=== PATIENT | female | born 1950 | race Caucasian/White ===

== ENCOUNTER 2023-09-14 09:55 | Outpatient (AMB) | payer MEDICARE, BC, SELFPAY ==
--- NOTE | 2023-09-14 10:06 | MHC.OFFVIS ---
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 Harris. Hx of left total knee replacement from 09/18/[address] Harris. Patient states she is here for her annual check up, states she has no concerns. She reports mild intermittent discomfort in her left knee. She denies any fevers or chills. She continues to walk for exercise. Allergies No Known Allergies Allergy (Verified 09/14/23 10:10) Medication List - Last Reconciled 09/14/23 by Elton Harris MD citalopram 10 mg PO DAILY gabapentin 100 mg PO DAILY glucosamine sulfate 500 mg PO DAILY timolol 0.5% 1 drp ophthalmic (eye) DAILY [facility] Social History Current occupational status: retired Physical Exam Vital Signs: BMI result Body Mass Index 38.1 Const Other: Well-nourished well-developed very friendly female awake alert and oriented x3 in no acute distress Extrem Other: Bilateral lower extremity examination shows good capillary refill, no skin lesions noted, normal sensation light touch Left knee examination shows that the surgical incision is well healed, no erythema, full active extension and flexion 120 degrees, her patella tracks well Results Reviewed Results Reviewed: X-rays of the patient's left knee taken today show a total knee arthroplasty in good position with no signs of loosening, no acute bony abnormalities Assessment & Plan Assessment & Plan (1) Left knee pain: Code(s): M25.562 - Pain in left knee Plan: Ms. Clements continues to do well after undergoing left total knee replacement surgery. She will continue with her home exercise program. She does know to take antibiotics before any dental work. She will contact me prior to her annual follow-up appointment should any questions or concerns arise. Feel free to call me at any time should questions regarding her orthopedic management arise. I spent 22 minutes in reviewing the patient's records and imaging studies, seeing the patient and documenting in the medical record. Orders: Orders XR knee LT 3V Today M25.562 - Pain in left knee Coding Level of Care Code Est Pt Level 2 (27236) Diagnoses Left knee pain M25.562
[2023-09-14 10:10] VITALS: BMI 38.1
== END 2023-09-14 10:35 | disposition home or self-care (01) ==
PROVIDERS: PCP Internal Medicine; Visit Provider Orthopaedic Surgery
DX: M25.562 Pain in left knee (principal)
CPT/HCPCS: 99212

== ENCOUNTER 2023-09-14 10:14 | Outpatient (REF) | payer MEDICARE, BC, SELFPAY ==
--- NOTE | ~2023-09-14 | XR_ITS ---
EXAMINATION: XR KNEE, LEFT CLINICAL INFORMATION: Pain in left knee COMPARISON: None available. TECHNIQUE: 3 views of left knee. FINDINGS: Patient is status post total knee replacement on the left with patellar resurfacing. Prosthesis is well aligned and there is no fractures or joint effusion seen. XR/XR knee LT 3V IMPRESSION: Well positioned prosthesis of the left knee
== END 2023-09-14 10:15 | disposition home or self-care (01) ==
LOC: HO.HOSX 10:14
PROVIDERS: Visit Provider Orthopaedic Surgery
DX: M25.562 Pain in left knee (principal)
CPT/HCPCS: 73562; 99212

== ENCOUNTER 2024-04-05 07:08 | Outpatient (REF) | payer MEDICARE, BC, SELFPAY ==
--- NOTE | ~2024-04-05 | XR_ITS ---
EXAMINATION: XR KNEE, LEFT CLINICAL INFORMATION: Pain in left knee. COMPARISON: 09/14/2023. TECHNIQUE: Three views of the left knee. FINDINGS: Status post total knee arthroplasty. Hardware appears intact. Alignment maintained. Increased lucency along the articulation between the proximal aspect of the prosthesis and the distal femur, possibly at least in part attributable to technical differences. Bones are diffusely demineralized. Moderate joint effusion. XR/XR knee LT 3V IMPRESSION: Status post total knee arthroplasty. Hardware appears intact. Increased lucency along the articulation between the proximal aspect of the prosthesis in the distal femur, possibly at least in part attributable to technical differences.
== END 2024-04-05 07:09 | disposition home or self-care (01) ==
LOC: HO.HOSX 07:08
PROVIDERS: Visit Provider Orthopaedic Surgery
DX: M25.562 Pain in left knee (principal)
CPT/HCPCS: 73562; 99212

== ENCOUNTER 2024-04-05 10:46 | Outpatient (AMB) | payer MEDICARE, BC, SELFPAY ==
[2024-04-05 10:54] VITALS: BMI 38.1
--- NOTE | 2024-04-05 10:54 | A.OFFVIS_ITS ---
Vital Signs 04/05/24 10:54 Height 5 ft 3 in Weight 215 lb BMI 38.1 Intake Visit Reasons: ov-LT knee replacement 09/18/2019 Dr. Harris Intake Note: Kierra is a 73 year old female who presents for a follow up after her Left knee replacement on 09/18/2019. Patient reports s minimal discomfort in her left knee. She denies any fevers or chills. She states that over the last few years she has put on a fair amount of weight. She is due to start the [employer] weight loss program. Allergies No Known Allergies Allergy (Verified 04/05/24 11:15) Medication List - Last Reconciled 04/05/24 by Elton Harris MD citalopram 10 mg PO DAILY gabapentin 100 mg PO DAILY glucosamine sulfate 500 mg PO DAILY timolol 0.5% 1 drp ophthalmic (eye) DAILY [facility] Surgical History (Updated 04/05/24 @ 11:18 by Susi Alvarado CMA) Hx of left knee surgery (09/18/19) Social History (Updated 09/14/23 @ 10:15 by Cindy Agarwal [facility]) Current occupational status: retired Physical Exam Vital Signs: BMI result Body Mass Index 38.1 Const Other: Well-nourished well-developed very friendly female awake alert and oriented x3 in no acute distress Extrem Other: Bilateral lower extremity examination shows good capillary refill, no skin lesions noted, normal sensation light touch Left knee examination shows that the surgical incision is well healed, no erythema, full active extension and flexion to 120 degrees, her patella tracks well, no instability Results Reviewed Results Reviewed: X-rays of the patient's left knee taken today show a total knee arthroplasty in good position with no signs of loosening, no acute bony abnormalities Assessment & Plan Assessment & Plan (1) Left knee pain: Code(s): M25.562 - Pain in left knee Category: Medical Plan Ms. Clements continues to do well after undergoing left total knee replacement surgery. She does know to take antibiotics before any dental work. She will continue with her home exercise program. I did refer her to the beef cattle farm manager here at [facility] for further information regarding weight loss programs. She will contact me prior to her annual follow-up appointment should any questions or concerns arise. Feel free to call me at any time should questions regarding her orthopedic management arise. I spent 21 minutes in reviewing the patient's records and imaging studies, seeing the patient and documenting in the medical record. Orders: Orders XR knee LT 3V 04/05/24 M25.562 - Pain in left knee Referrals Nutrition/Dietitian Referral E66.9 - Obesity, unspecified, M25.562 - Pain in left knee Coding Level of Care Code Est Pt Level 3 (17131) Diagnoses Left knee pain M25.562
== END 2024-04-05 11:42 | disposition home or self-care (01) ==
PROVIDERS: PCP Internal Medicine; Visit Provider Orthopaedic Surgery
DX: M25.562 Pain in left knee (principal); Z96.652 Presence of left artificial knee joint
CPT/HCPCS: 99213

== ENCOUNTER 2024-07-20 11:25 | Outpatient (AMB) | payer MEDICARE, BC, SELFPAY ==
--- NOTE | 2024-07-20 11:44 | MHC.OFFVIS ---
Intake Visit Reasons: ov-LT knee replacement 09/18/2019 Dr. Harris Intake Note: Kierra is a 73 year old female who presents for a follow up after her Left knee replacement on 09/18/2019. The patient states that she has mild intermittent discomfort in her left knee. She denies any fevers or chills. She states that she has been eating healthier foods but has been having trouble losing weight. She is due to see her primary care doctor over the next few months to discuss the possibility of going on a medicine like Ozempic. Allergies No Known Allergies Allergy (Verified 07/20/24 11:44) Medication List - Last Reconciled 07/20/24 by Elton Harris MD amoxicillin 500 mg PO BID citalopram 10 mg PO DAILY gabapentin 100 mg PO DAILY glucosamine sulfate 500 mg PO DAILY timolol 0.5% 1 drp ophthalmic (eye) DAILY [facility] Surgical History (Updated 04/05/24 @ 11:18 by Susi Alvarado [facility]) Hx of left knee surgery (09/18/19) Social History (Updated 09/14/23 @ 10:15 by Cindy Agarwal [facility]) Current occupational status: retired Physical Exam Const Other: Well-nourished well-developed very friendly female awake alert and oriented x3 in no acute distress Extrem Other: Bilateral lower extremity examination shows good capillary refill, no skin lesions noted, normal sensation light touch Left knee examination shows that the surgical incision is well healed, no erythema, full active extension and flexion to 120 degrees, her patella tracks well Assessment & Plan Assessment & Plan (1) Left knee pain: Code(s): M25.562 - Pain in left knee Category: Medical Plan Ms. Clements continues to do fairly well after undergoing left total knee replacement surgery on 09/18/2019. She will continue with her home exercise program. She does know to take antibiotics before any dental work. She will contact me prior to her annual follow-up appointment should any questions or concerns arise. Feel free to call me at any time should questions regarding her orthopedic management arise. I spent 22 minutes in reviewing the patient's records and imaging studies, seeing the patient and documenting in the medical record. Coding Level of Care Code Est Pt Level 3 (16105) Complex EM visit Add On G2211 Diagnoses Left knee pain M25.562
== END 2024-07-20 12:15 | disposition home or self-care (01) ==
PROVIDERS: PCP Internal Medicine; Visit Provider Orthopaedic Surgery
DX: M25.562 Pain in left knee (principal); Z47.1 Aftercare following joint replacement surgery
CPT/HCPCS: 99213; G2211

== ENCOUNTER → 2024-07-20 11:25 | Outpatient (BNVA) | payer MEDICARE, BC, SELFPAY | PROVIDERS: PCP Internal Medicine; Visit Provider Orthopaedic Surgery | DX: M25.562 Pain in left knee (principal); Z96.652 Presence of left artificial knee joint | CPT/HCPCS: 99212 ==

== ENCOUNTER 2024-11-16 11:19 | Outpatient (AMB) | payer MEDICARE, BC, SELFPAY ==
[2024-11-16 11:24] VITALS: BMI 38.1
--- NOTE | 2024-11-16 11:24 | MHC.OFFVIS ---
Vital Signs 11/16/24 11:24 Height 5 ft 3 in Weight 215 lb BMI 38.1 Intake Visit Reasons: ov-LT knee replacement 09/18/2019 Dr. Harris Intake Note: Kierra is a 73 year old female who presents for a follow up after undergoing a left knee replacement on 09/18/2019. She reports mild discomfort in her left knee. She denies any fevers or chills. She continues with her home exercise program. Allergies No Known Allergies Allergy (Verified 11/16/24 11:24) Medication List - Last Reconciled 11/16/24 by Elton Harris MD amoxicillin 500 mg PO BID citalopram 10 mg PO DAILY fluticasone propionate 50 mcg/actuation 1 spray intranasal DAILY gabapentin 100 mg PO DAILY glucosamine sulfate 500 mg PO DAILY latanoprost 0.005% drps ophthalmic (eye) timolol 0.5% 1 drp ophthalmic (eye) DAILY [facility] Surgical History (Updated 04/05/24 @ 11:18 by Susi Alvarado CMA) Hx of left knee surgery (09/18/19) Social History (Updated 09/14/23 @ 10:15 by Cindy Agarwal [facility]) Current occupational status: retired Physical Exam Vital Signs: BMI result Body Mass Index 38.1 Const Other: Well-nourished well-developed very friendly female awake alert and oriented x3 in no acute distress Extrem Other: Bilateral lower extremity examination shows good capillary refill, no skin lesions noted, normal sensation light touch Left knee examination shows that the surgical incision is well healed, no erythema, full active extension and flexion to 115 degrees, her patella tracks well Assessment & Plan Assessment & Plan (1) Left knee pain: Code(s): M25.562 - Pain in left knee Category: Medical Plan Ms. Clements continues to do well after undergoing left total knee replacement surgery on 09/18/2019. She will continue with her home exercise program. She does know to take antibiotics before any dental work. She will contact me prior to her annual follow-up appointment should any questions or concerns arise. Feel free to call me at any time should questions regarding her orthopedic management arise. I spent 20 minutes in reviewing the patient's records and imaging studies, seeing the patient and documenting in the medical record. Medications: New celecoxib (Celebrex) 200 mg PO DAILY PRN 30 caps 3RF pain Coding Level of Care Code Est Pt Level 3 (15379) Complex EM visit Add On G2211 Diagnoses Left knee pain M25.562
--- OUTSIDE RECORDS SUMMARY | 2024-11-16 11:59 | XMS_ITS | Continuity of Care Document ---
Author Organization [facility], PAIN OFFICE Address [address] [place] [address] Care Team Providers Care Geological Technician Name Role Phone GALE GALVIN Primary Care Provider Assessment Encounter Date Assessment Date Assessment LastModified by Organization Details LastModified Time 10/12/2024 10/12/2024 Kierra Clements is a 73 year old woman with complaints of low back pain . On exam ,she has pain on flexion. Straight leg raising test is positive on the right. ??MRI Lumbar spine shows degenerative changes most notable at L4-5 level. A grade 1 spondylolisthesis in association with facet arthropathy and ligamentum flavum hypertrophy results in moderate central canal stenosis. She is here for a follow up after a trial of Lumbar epidural steroid injection under fluoroscopic guidance . She reports good pain relief for one month and will call for a repeat injection as needed. She will continue on gabapentin [email or web address] Not available 10/12/2024 16:13:31 Plan of Treatment Reminders Order Date Submit Date Provider Last Modified By Organization Details Last Modified Time Details Appointments None record ed. Lab None record ed. Referral None record ed. Procedures None record ed. Surgeries None record ed. Imaging None record ed. Medication Orders None record ed. Patient TargetsNo targets recorded. Patient Instructions Encounter Date Encounter Id Patient Instructions Last Modified By Organization Details Last Modified Time 10/12/2024 [id number] She was advised against bed rest lasting longer than four days and to continue activities as tolerated. [email or web address] Not available 10/12/2024 16:05:53 Reason for Referral None Reported. Problems Name Problem SNOMED Code Status Onset Date Resolution Date Notes Provider Name and Address Organization Details Recorded Time Spinal stenosis of lumbar region 32687130 Active Brandy de jesus MD [address] , [address], [facility] [place], [address], [place] [facility] 6 15:12:08 Lumbosacral spondylosis without myelopathy 09832125 Active Brandy de jesus MD [address] , [address], [place], [address], [place] [facility] 6 15:12:08 Displacement of lumbar intervertebral disc without myelopathy 42931578 Active Brandy de jesus MD [address] , [address], [place], [address], [place] [facility] 6 15:12:08 Lumbosacral radiculitis 83413345 Active Brandy de jesus MD [address] [facility] , [address], [place], [address], [place] [facility] 6 15:12:08 Spondylolisthe sis 540634416 Active Brandy de jesus MD [address] [facility] [address] [facility] , [address], [place], [address], [place] [facility] 6 15:12:08 Osteoarthritis of knee 279439005 Active Brnady de jesus MD [address] [facility] , [address], [place], [address], [place] [facility] 6 15:12:08 Problem Notes None recorded. Procedures Surgical History Date Name Laterality Status Provider Name and Address Organization Details Recorded Time 09/12/20 24 Lumbar Epidural steroid injection under fluoroscopic guidance completed Brandy Torres MD [address] , [address], [place], [address], [place] [facility] 09/12/2024 12:02:32 10/03/20 18 Intra-articular Knee Steroid Injection completed Brandy Torres MD [address] , [address], [place], [address], [place] [facility] 10/03/2018 13:56:48 02/05/20 17 Intra-articular Knee Steroid Injection completed Brandy Torres MD [address] , [address], [place], [address], [place] [facility] 02/04/2017 14:33:54 06/11/20 16 Intra-articular Knee Steroid Injection completed Brandy Torres MD [address] , [address], [place], [address], [place] [facility] 06/12/2016 09:27:30 05/06/20 16 Lumbar Epidural steroid injection under fluoroscopic guidance completed Brandy Torres MD [address] , [address], [place], [address], [place] [facility] 05/06/2016 10:37:52 01/01/20 16 Lumbar Epidural steroid injection under fluoroscopic guidance completed Brandy Torres MD [address] , [address], [place], [address], [place] [facility] 01/01/2016 09:34:35 10/22/20 15 Lumbar Epidural steroid injection under fluoroscopic guidance completed Brandy Torres MD [address] [facility] , [address], [place], [address], [place] [facility] 10/23/2015 11:40:58 07/31/20 15 Lumbar Epidural steroid injection under fluoroscopic guidance completed Brandy Torres MD [address] [facility] , [address], [place], [address], [place] [facility] 08/01/2015 13:40:16 05/06/20 15 Lumbar Epidural steroid injection under fluoroscopic guidance completed Brandy Torres MD [address] [facility] , [address], [place], [address], [place] - [facility] 05/06/2015 10:40:39 02/12/20 15 Fluoroscopic Guided Lumbar Facet Steroid Injections of levels completed Brandy Torres MD [address] , [address], [place], [address], [place] [facility] 02/19/2015 11:23:10 12/31/19 15 Lumbar Epidural steroid injection under fluoroscopic guidance completed Brandy Torres MD [address] , [address], [place], [address], [place] [facility] 12/31/2014 10:03:38 Arthroscopic Surgery completed Radha Davis [place] - [facility] 12/28/2014 11:17:16 Other completed Radha Davis [place] [facility] 12/28/2014 11:17:16 Other completed Radha Davis [place] [facility] 12/28/2014 11:17:16 Other completed Radha Davis [place] [facility] 12/31/2014 08:46:03 Cataract Surgery completed Radha Davis [place] [facility] 12/28/2014 11:17:16 Imaging Results None recorded. Procedure Notes None recorded. Medical Equipment None Reported. Allergies No known drug allergies Medications Name Sig Start Date Stop Date Status Note LastModified by Organization Details LastModified Time celecoxib 200 mg capsule Take 1 capsule every day by oral route for 30 days. 11/27 completed Not Available Not Available Not Available amoxicill in 500 mg capsule 07/13 completed Not Available Not Available Not Available latanopro st 0.005 % eye drops active Not Available Not Available Not Available doxycycli ne hyclate 100 mg capsule 09/22 completed Not Available Not Available Not Available citalopra m 40 mg tablet active Not Available Not Available Not Available hydrocodo ne 5 mg-acetam inophen 325 mg tablet active Not Available Not Available Not Available ibuprofen 200 mg capsule Take 2 capsules every 6 hours by oral route. active Not Available Not Available No t Available permethri n 5 % topical cream active Not Available Not Available Not Available sulfameth oxazole 800 mg-trimet hoprim 160 mg tablet 09/22 completed Not Available Not Available Not Available citalopra m 20 mg tablet 07/13 completed SSRI Not Available Not Available Not Available aspirin 325 mg tablet,de layed release active Not Available Not Available Not Available lorazepam 2 mg tablet active Not Available Not Available Not Available dexametha sone 4 mg tablet active Not Available Not Available Not Available gabapenti n 300 mg capsule TAKE TWO CAPSULES BY MOUTH THREE TIMES A DAY active Not Available Not Available No t Available amoxicill in 250 mg capsule Take 1 capsule every 8 hours by oral route. 10/12 completed Not Available Not Available Not Available azelastin e 137 mcg (0.1 %) nasal spray 11/27 completed Not Available Not Available Not Available methylpre dnisolone 4 mg tablets in a dose pack 09/22 completed Not Available Not Available Not Available timolol maleate 0.5 % eye drops active Not Available Not Available Not Available fluticaso ne propionat e 50 mcg/actua tion nasal spray,marie pension active Not Available Not Available Not Available amoxicill in 500 mg-potass ium clavulana te 125 mg tablet TAKE 1 TABLET BY MOUTH EVERY 8 HOURS FOR 7 DAYS 07/13 completed Not Available Not Available Not Available Tylenol Extra Strength 500 mg tablet Take 2 tablets every 6 hours by oral route. active otc antihist amine once daily Not Available Not Available Not Available oxycodone 5 mg tablet 11/27 completed Not Available Not Available Not Available Jantoven 1 mg tablet 11/27 completed Not Available Not Available Not Available GaviLyte- G 236 gram-22.7 4 gram-6.74 gram-5.86 gram oral solution 07/13 completed Not Available Not Available Not Available Fluzone High-Dose (PF) 180 mcg/0.5 mL intramusc ular syringe TO BE ADMINIST ERED BY PHARMACI ST FOR IMMUNIZA TION active Not Available Not Available No t Available Fluzone High-Dose (PF) 180 mcg/0.5 mL intramusc ular syringe TO BE ADMINIST ERED BY A PHARMACI ST active Not Available Not Available No t Available Shingrix (PF) 50 mcg/0.5 mL intramusc ular suspensio n, kit 11/27 completed Not Available Not Available Not Available Fluzone High-Dose (PF) 180 mcg/0.5 mL intramusc ular syringe ADM 0.5ML IM UTD 09/22 completed Not Available Not Available Not Available Vitals Date Recorded Heart rate Oxygen saturation Oxygen saturation in Arterial blood by Pulse oximetry Systolic blood pressure Diastolic blood pressure Provider Name and Address Organization Details Last Updated DateTime 4 67 /min 96 % 96 % 145 mm[Hg] 73 mm[Hg] Sole gonzales [place] [facility] 4 10:31:00 Social History Question Answer Notes LastModified by Organizat ion Details LastModified Time Tobacco Smoking Status Former Smoker Quit x 40 years Not Available [employer] 08/23/2020 03:16:10 What Is Your Level Of Alcohol Consumption? Moderate [id number] Information not available 08/23/2020 Are You Currently Employed? No [id number] Information not available 08/23/2020 Which Illicit Or Recreational Drugs Have You Used? No [id number] Information not available 08/23/2020 Education Post Graduate [email or web address] Information not available 12/28/2014 Live Alone Or With Others? With Others [email or web address] Information not available 12/28/2014 Marital Status Informatio n not available 12/28/2014 What Was The Date Of Your Most Recent Tobacco Screening? 10/03/2018 [id number] Information not available 08/23/2020 How Many Years Have You Smoked Tobacco? 5 [id number] Information not available 08/23/2020 Sex: Unknown Functional Status None recorded. Mental Status None recorded. Family History Relationship Description Onset Age of this Age Resolved Age Notes LastModified by Organization Details LastModified Time Mother Problem Arthri tis [email or web address] Not available 06/11/2016 15:07:38 Father Problem Arthri tis [email or web address] Not available 06/11/2016 15:07:38 Medical History Condition Response Anxiety Disorder Y Arthritis Y Gynecological HistoryNo gynecological history recorded. Obstetrics History GPAL:G 0 P 0 0 0 0 Past Encounters Encounter ID Performer Location Encounter Start Date Encounter Closed Date Diagnosis/Indication Diagnosis SNOMED-CT Code Diagnosis ICD10 Code Diagnosis Note [id number] Brandy Torres MD PAIN OFFICE [address] [place] [address] 09/12/2024 11:15:23 09/12/2024 16:33:50 Spinal stenosis of lumbar region 28548513 M48.062 Lumbosacra l spondylosis without myelopathy 07869024 M47.817 Displaceme nt of lumbar intervertebral disc without myelopathy 45867223 M51.26 Spondylolisthesis 884263 003 M43.17 Lumbosacra l radiculitis 41288932 M54.17 [id number] Brandy Torres MD PAIN OFFICE [address] [facility] [place] [address] 10/12/2024 10:26:07 10/12/2024 16:18:51 Spinal stenosis of lumbar region 07515591 M48.062 Lumbosacra l spondylosis without myelopathy 66513238 M47.817 Displaceme nt of lumbar intervertebral disc without myelopathy 53485033 M51.26 Spondylolisthesis 881475 003 M43.17 Lumbosacra l radiculitis 81556541 M54.17 Health Concerns Section Related Observation LastModified by Organization Detai ls LastModified Time None Recorded Concern Status LastModified by Organization Details LastModified Time None Recorded Payers Encounter Date Sequence Insurance Name Policy Number Policy Germain Covered Member ID Germain Member ID Guarantor Name 10/12/2024 1 [place] [employer] [place] Kierra Clements [id number] Kierra Clements 10/12/2024 2 [place] Kierra Clements [id number] Kierra Clements Notes Date Note Type Note Provider Name and Address Organization Details Recorded Time 10/12/2024 text/html She is here for a follow up after a lumbar epidural steroid injection under fluoroscopic guidance. She reports 90% pain relief for 4 weeks with a recent return of pain. pain is back to baseline. She was walking better. She is complaining of occasionally achiness in her low back . She has no history of bladder or bowel incontinence. Brandy Torres MD [address] [place] [address] , [address], [place], [address], [place] [facility] 10/13/2024 09:12:46 OBGyn Episode No OBEpisode recorded.
--- OUTSIDE RECORDS SUMMARY | 2024-11-16 11:59 | XMS_ITS | Data Portability ---
Author Organization [place] [facility] PA[facility] OFF[facility] Address [address] [address] Care Team Providers Care Traffic Controller Cable Name Role Phone GALE GALVIN Primary Care Provider Assessment Encounter Date Assessment Date Assessment LastModified by Organization Details LastModified Time 11/27/2021 11/27/2021 Kierra Clements is a 71 year old woman with complaints of low back pain . On exam ,she has pain on flexion. Straight leg raising test is positive on the right. ??MRI Lumbar spine shows degenerative changes most notable at L4-5 level. A grade 1 spondylolisthesis in association with facet arthropathy and ligamentum flavum hypertrophy results in moderate central canal stenosis. She is on gabapentin with good pain benefit and no side effects. I have advised her to continue with same dosing. She will follow up as needed. [email or web address] Not available 12/03/2021 11:08:05 12/16/2022 12/16/2022 Kierra Clements is a 71 year old woman with complaints of low back pain . On exam ,she has pain on flexion. Straight leg raising test is positive on the right. ??MRI Lumbar spine shows degenerative changes most notable at L4-5 level. A grade 1 spondylolisthesis in association with facet arthropathy and ligamentum flavum hypertrophy results in moderate central canal stenosis. She is on gabapentin with good pain benefit and no side effects. I have advised her to increase the dose of gabapentin to 300mg in the am, 600mg in the afternoon and 300mg at night. She will call in one month and follow up in three months [email or web address] Not available 12/22/2022 11:00:51 07/13/2024 07/13/2024 Kierra Clements is a 73 year old woman with complaints of low back pain . On exam ,she has pain on flexion. Straight leg raising test is positive on the right. ??MRI Lumbar spine shows degenerative changes most notable at L4-5 level. A grade 1 spondylolisthesis in association with facet arthropathy and ligamentum flavum hypertrophy results in moderate central canal stenosis. She is on gabapentin with good pain benefit and no side effects. I have advised her to continue present doses She will follow up next year [email or web address] Not available 07/13/2024 10:51:14 09/12/2024 09/12/2024 Kierra Clements is a 73 year old [...] canal stenosis. She is here for a trial of Lumbar epidural steroid injection under fluoroscopic guidance . The risks and benefits of the procedure were discussed in detail. She wishes to proceed. She will follow up in four weeks [email or web address] Not available 09/12/2024 12:03:47 10/12/2024 10/12/2024 Kierra Clements is a 73 [...] Modified By Organization Details Last Modified Time 12/16/2022 [id number] She was advised against bed rest lasting longer than four days and to continue activities as tolerated. [email or web address] Not available 12/22/2022 10:59:36 07/13/2024 [id number] She was advised against bed rest lasting longer than four days and to continue activities as tolerated. [email or web address] Not available 07/13/2024 10:47:50 09/12/2024 [id number] She was advised against bed rest lasting longer than four days and to continue activities as tolerated. [email or web address] Not available 09/12/2024 12:03:01 10/12/2024 [id number] She was advised against bed rest lasting longer than four days and to continue activities as tolerated. [email or web address] Not available 10/12/2024 16:05:53 Reason for Referral None Reported. Problems Name Problem SNOMED Code Status Onset Date Resolution Date Notes Provider Name and Address Organization Details Recorded Time Spinal stenosis of lumbar region [id number] Fazal de jesus MD [address] [facility] , [address], [place], [address], [place] [facility] 6 15:12:08 Lumbosacral spondylosis without myelopathy [id number] Fazal de jesus MD [address] , [address], [place], [address], [place] [facility] 6 15:12:08 Displacement of lumbar intervertebral disc without myelopathy 15785230 Fazal de jesus MD [address] , [address], [place], [address], [place] [facility] 6 15:12:08 Lumbosacral radiculitis 24116112 Fazal de jesus MD [address] , [address], [place], [address], [place] [facility] 6 15:12:08 Spondylolisthe sis [id number] Fazal de jesus MD [address] , [address], [place], [address], [place] [facility] 6 15:12:08 Osteoarthritis of knee 967418314 Fazal de jesus MD [address] , [address], [place], [address], [place] [facility] 6 15:12:08 Problem Notes None recorded. Procedures Surgical History Date Name Laterality Status Provider Name and Address Organization Details Recorded Time 09/12/20 24 Lumbar Epidural steroid injection under fluoroscopic guidance completed Brandy Torres MD [address] , [address], [place], [address], [place] [facility] 09/12/2024 12:02:32 10/03/20 18 Intra-articular Knee Steroid Injection completed Brandy Torres MD [address] , [address], [place], [address], [place] [facility] 10/03/2018 13:56:48 02/05/20 17 Intra-articular Knee Steroid Injection completed Brandy Torres MD [address] , [address], [place], [address], [place] [facility] 02/04/2017 14:33:54 06/11/20 16 Intra-articular Knee Steroid Injection completed Brandy Torres MD [address] , [address], [place], [address], [place] [facility] 06/12/2016 09:27:30 05/06/20 16 Lumbar Epidural steroid injection under fluoroscopic guidance completed Brandy Torres MD [address] , [address], [place], [address], [place] [facility] 05/06/2016 10:37:52 01/01/20 16 Lumbar Epidural steroid injection under fluoroscopic guidance completed Brandy Torres MD [address] , [address], [place], [address], [place] [facility] 01/01/2016 09:34:35 10/22/20 15 Lumbar Epidural steroid injection under fluoroscopic guidance completed Brandy Torres MD [address] , [address], [place], [address], [place] [facility] 10/23/2015 11:40:58 07/31/20 15 Lumbar Epidural steroid injection under fluoroscopic guidance completed Brandy Torres MD [address] , [address], [place], [address], [place] [facility] 08/01/2015 13:40:16 05/06/20 15 Lumbar Epidural steroid injection under fluoroscopic guidance completed Brandy Torres MD [address] , [address], [place], [address], [place] [facility] 05/06/2015 10:40:39 02/12/20 15 Fluoroscopic Guided Lumbar Facet Steroid Injections of levels completed Brandy Torres MD [address] , [address], [place], [address], [place] [facility] 02/19/2015 11:23:10 12/31/19 15 Lumbar Epidural steroid injection under fluoroscopic guidance completed Brandy Torres MD [address] , [address], [place], [address], [place] [facility] 12/31/2014 10:03:38 Arthroscopic Surgery completed Radha Davis [place] [facility] 12/28/2014 11:17:16 Other completed Radha Davis [place] [facility] 12/28/2014 11:17:16 Other completed Radha Daivs [place] [facility] 12/28/2014 11:17:16 [...] ular syringe TO BE ADMINIST ERED BY [facility] active Not Available Not Available [...] and Address Organization Details Last Updated DateTime 2 67 /min 95 % 95 % 142 mm[Hg] 78 mm[Hg] Alena Yoon [place] [facility] 2 15:36:21 Date Recorded Heart rate Oxygen saturation Oxygen saturation in Arterial blood by Pulse oximetry Systolic blood pressure Diastolic blood pressure Provider Name and Address Organization Details Last Updated DateTime 3 72 /min 95 % 95 % 159 mm[Hg] 72 mm[Hg] Brittney de jesus [place] [facility] 3 16:10:05 Date Recorded Heart rate Oxygen saturation Oxygen saturation in Arterial blood by Pulse oximetry Systolic blood pressure Diastolic blood pressure Provider Name and Address Organization Details Last Updated DateTime 4 63 /min 95 % 95 % 119 mm[Hg] 66 mm[Hg] Karina Robertson [place] [facility] 4 10:32:15 Date Recorded Heart rate Oxygen saturation Oxygen saturation in Arterial blood by Pulse oximetry Systolic blood pressure Diastolic blood pressure Provider Name and Address Organization Details Last Updated DateTime 4 65 /min 97 % 97 % 139 mm[Hg] 82 mm[Hg] Lisa Kamila [place] [facility] 4 11:41:12 Date Recorded Heart rate Oxygen saturation Oxygen [...] Is Your Level Of Alcohol Consumption? Moderate [id number] Information not available 08/23/2020 Are You Currently Employed? No [id number] Information not available 08/23/2020 Which Illicit Or Recreational Drugs Have You Used? No [id number] Information not available 08/23/2020 Education Post Graduate [employer] Information not available 12/28/2014 Live Alone Or With Others? With Others Information not available 12/28/2014 Marital Status Informatio n not available 12/28/2014 What Was The Date Of Your Most Recent Tobacco Screening? 10/03/2018 [id number] Information not available 08/23/2020 How Many Years Have You Smoked Tobacco? 5 [id number] Information not available 08/23/2020 Sex: Unknown Functional [...] SNOMED-CT Code Diagnosis ICD10 Code Diagnosis Note 22083 PAIN OFFICE [address] [facility] [place] [place] [address] 12/28/2014 10:32:36 12/28/2014 13:45:12 Lumbosacral radiculitis 56729680 Spinal jenna nosis of lumbar region 39538505 Displaceme nt of lumbar intervertebral disc without myelopathy 77667031 Lumbosacra l spondylosis without myelopathy 84758818 Spondylolisthesis 291699198 72769 PAIN OFFICE [address] [facility] [address] [place] [address] 12/31/2014 09:01:00 12/31/2014 10:05:38 Spinal stenosis of lumbar region 90333303 Lumbosacra l spondylosis without myelopathy 95236620 Displaceme nt of lumbar intervertebral disc without myelopathy 09817514 Spondylolisthesis 460516348 Lumbosacra l radiculitis 77572938 34196 [facility] [address] [facility] [address] [facility] [place] [address] 01/29/2015 09:41:19 01/29/2015 14:44:07 Spinal stenosis of lumbar region 61855715 Lumbosacra l spondylosis without myelopathy 31686339 Displaceme nt of lumbar intervertebral disc without myelopathy 75935048 Spondylolisthesis 752097481 Lumbosacra l radiculitis 94185258 18862 [facility] [address] [facility] [address] [facility] [place] [address] 02/11/2015 12:57:21 02/19/2015 11:25:32 Lumbosacral spondylosis without myelopathy 66421955 Spinal jenna nosis of lumbar region 86504556 Displaceme nt of lumbar intervertebral disc without myelopathy 96569068 Spondylolisthesis 451382635 Lumbosacra l radiculitis 63348379 46619 [facility] [address] [facility] [address] [facility] [place] [address] 03/12/2015 09:15:37 03/17/2015 10:26:53 Spinal stenosis of lumbar region 31394902 Lumbosacra l spondylosis without myelopathy 35737634 Displaceme nt of lumbar intervertebral disc without myelopathy 37081581 Spondylolisthesis 293190124 Lumbosacra l radiculitis 08478559 60601 [facility] PA[facility] OFF[facility] [email or web address] [facility] [place] [address] 05/06/2015 09:45:43 05/07/2015 09:23:34 Spinal stenosis of lumbar region 99931604 Lumbosacra l spondylosis without myelopathy 15948925 Displaceme nt of lumbar intervertebral disc without myelopathy 31320501 Spondylolisthesis 527180412 Lumbosacra l radiculitis 03228177 20185 [facility] PA[facility] [address] [facility] [address] [facility] [place] [address] 07/31/2015 13:43:52 08/01/2015 13:42:18 Spinal stenosis of lumbar region 58304355 Lumbosacra l spondylosis without myelopathy 76026926 Displaceme nt of lumbar intervertebral disc without myelopathy 09563128 Spondylolisthesis 584182450 Lumbosacra l radiculitis 91119763 44657 Brandy Torres MD PAIN OFFICE [address] [place] [address] 10/22/2015 14:45:47 10/23/2015 11:42:48 Spinal stenosis of lumbar region 71805650 M48.06 Lumbosacra l spondylosis without myelopathy 61186157 M47.817 Displaceme nt of lumbar intervertebral disc without myelopathy 63673253 M51.26 Spondylolisthesis 655080 003 M43.10 Lumbosacra l radiculitis 97725546 M54.17 10370 Brandy Torres MD PAIN OFFICE [address] [place] [address] 01/01/2016 08:48:43 01/01/2016 09:35:14 Spinal stenosis of lumbar region 87670602 M48.06 Lumbosacra l spondylosis without myelopathy 30601366 M47.817 Displaceme nt of lumbar intervertebral disc without myelopathy 70359769 M51.26 Spondylolisthesis 951619 003 M43.10 Lumbosacra l radiculitis 37931393 M54.17 11906 Brandy Torres MD PAIN OFFICE [address] [place] [address] 02/28/2016 11:00:14 03/02/2016 08:55:00 Spinal stenosis of lumbar region 42156685 M48.06 Lumbosacra l spondylosis without myelopathy 41082822 M47.817 Displaceme nt of lumbar intervertebral disc without myelopathy 77585222 M51.26 Spondylolisthesis 960675 003 M43.17 Lumbosacra l radiculitis 16517878 M54.17 37772 Brandy Torres MD PAIN OFFICE [address] [place] [address] 05/06/2016 09:53:45 05/06/2016 10:38:29 Spinal stenosis of lumbar region 32359921 M48.06 Lumbosacra l spondylosis without myelopathy 92988339 M47.817 Displaceme nt of lumbar intervertebral disc without myelopathy 93133354 M51.26 Spondylolisthesis 814909 003 M43.17 M43.10 Lumbosacra l radiculitis 29361332 M54.17 79551 Brandy Torres MD PAIN OFFICE [address] [place] [address] 06/11/2016 13:12:24 06/11/2016 15:22:17 Spinal stenosis of lumbar region 46288649 M48.06 Lumbosacra l spondylosis without myelopathy 58965519 M47.817 Displaceme nt of lumbar intervertebral disc without myelopathy 72476101 M51.26 Spondylolisthesis 809099 003 M43.17 M43.10 Lumbosacra l radiculitis 11512583 M54.17 Osteoarthr itis of knee 140184046 M17.12 62015 Brandy Torres MD PAIN OFFICE [address] [place] [address] 02/04/2017 11:29:59 02/04/2017 15:11:25 Spinal stenosis of lumbar region 07368173 M48.06 Lumbosacra l spondylosis without myelopathy 29990583 M47.817 Displaceme nt of lumbar intervertebral disc without myelopathy 31497841 M51.26 Spondylolisthesis 795666 003 M43.17 M43.10 Lumbosacra l radiculitis 67455717 M54.17 Osteoarthr itis of knee 633039037 M17.12 48635 Brandy Torres MD PAIN OFFICE [address] [place] [address] 09/22/2018 14:47:52 09/23/2018 15:00:51 Spinal stenosis of lumbar region 87505537 M48.061 Lumbosacra l spondylosis without myelopathy 69095729 M47.817 Displaceme nt of lumbar intervertebral disc without myelopathy 38649043 M51.26 Spondylolisthesis 591730 003 M43.17 M43.10 Lumbosacra l radiculitis 13536899 M54.17 Osteoarthr itis of knee 576856937 M17.12 69006 Brandy Torres MD PAIN OFFICE [address] [place] [address] 10/03/2018 13:15:01 10/03/2018 13:58:50 Spinal stenosis of lumbar region 76760628 M48.061 Lumbosacra l spondylosis without myelopathy 56037456 M47.817 Displaceme nt of lumbar intervertebral disc without myelopathy 74004802 M51.26 Spondylolisthesis 910252 003 M43.17 M43.10 Lumbosacra l radiculitis 95221277 M54.17 Osteoarthr itis of knee 549541556 M17.12 11496 Brandy Torres MD [facility] PAIN OFFICE [address] [place] [address] 11/27/2021 15:24:36 12/03/2021 11:08:39 Spinal stenosis of lumbar region 36663466 M48.062 Lumbosacra l spondylosis without myelopathy 04489545 M47.817 Displaceme nt of lumbar intervertebral disc without myelopathy 60900786 M51.26 Spondylolisthesis 141111 003 M43.17 Lumbosacra l radiculitis 53671100 M54.17 96974 Brandy Torres MD [facility] PAIN OFFICE [address] [place] [address] 12/16/2022 16:05:48 12/22/2022 11:52:44 Spinal stenosis of lumbar region 80116513 M48.062 Lumbosacra l spondylosis without myelopathy 07659282 M47.817 Displaceme nt of lumbar intervertebral disc without myelopathy 79250409 M51.26 Spondylolisthesis 170125 003 M43.17 Lumbosacra l radiculitis 26656218 M54.17 93233 Brandy Torres MD [facility] PAIN OFFICE [address] [place] [address] 07/13/2024 10:25:32 07/13/2024 10:52:14 Spinal stenosis of lumbar region 23482693 M48.062 Lumbosacra l spondylosis without myelopathy 56751568 M47.817 Displaceme nt of lumbar intervertebral disc without myelopathy 99664461 M51.26 Spondylolisthesis 961008 003 M43.17 Lumbosacra l radiculitis 07834959 M54.17 33340 Brandy Torres MD PAIN OFFICE [address] [place] [address] 09/12/2024 11:15:23 09/12/2024 16:33:50 Spinal stenosis of lumbar region 69149640 M48.062 Lumbosacra l spondylosis without myelopathy 63752976 M47.817 Displaceme nt of lumbar intervertebral disc without myelopathy 85595576 M51.26 Spondylolisthesis 895199 003 M43.17 Lumbosacra l radiculitis 67272189 M54.17 70731 Brandy Torres MD PAIN OFFICE [address] [facility] [address] [place] [address] 10/12/2024 10:26:07 10/12/2024 16:18:51 Spinal stenosis of lumbar region 42997710 M48.062 Lumbosacra l spondylosis without myelopathy 91218617 M47.817 Displaceme nt of lumbar intervertebral disc without myelopathy 12828606 M51.26 Spondylolisthesis 692550 003 M43.17 Lumbosacra l radiculitis 69971373 M54.17 Health Concerns Section Related Observation LastModified by Organization Detai ls LastModified Time None Recorded Concern Status LastModified by Organization Details LastModified Time None Recorded Advance Directives Directive None Recorded Payers Encounter Date Sequence Insurance Name Policy Number Policy Germain Covered Member ID Germain Member ID Guarantor Name 11/27/2021 1 [place] Kierra Clements [id number] 3 Kierra Clements 11/27/2021 2 [place] Kierra Clements [id number] Kierra Clements 12/16/2022 1 [place] Kierra Clements [id number] 3 Kierra Clements 12/16/2022 2 [place] Kierra Clements [id number] Kierra Killianb 07/13/2024 1 [place] Kierra Killianb [id number] 3 Kierra Beyercab 07/13/2024 2 [place] Kierra Beyercab [id number] Kierra Beyercab 09/12/2024 1 [place] Kierra Beyercab [id number] Kierra Kucab 09/12/2024 2 [place] Kierra Beyercab [id number] Kierra Beyercab 10/12/2024 1 [place] Kierra Beyercab [id number] 3 Kierra Beyercab 10/12/2024 2 [place] Kierra Beyercab [id number] Kierra Killianb Notes Date Note Type Note Provider Name and Address Organization Details Recorded Time 11/27/2021 text/html She is here for a follow up. She was last seen in 2019 and had a knee replacement and has been doing well. She is on gabapentin 600mg tid and is doing well. She reports good pain benefit and no side effects. Brandy Torres MD [address] , [address], [place], [address], [facility] 12/03/2021 15:27:02 12/16/2022 text/html She is here for a follow up. She was last seen on Brandy Torres MD [address] , [address], [place], [address], [facility] - [facility] 12/23/2022 08:27:15 07/13/2024 text/html She is here for a follow up. She was last seen on 12/16/2022. She has been taking gabapentin and doing well with no side effects. She feels good in the morning and has low back pain in the afternoon. She feels her pain is controlled with gabapentin. She walks around her house and is able to do grocery shopping. She is not able to take any long walks due to pain. She has no history of bladder or bowel incontinence.She had a tooth pulled and feels she still has infection.Lab work done on 04/2024 was within normal limits Brandy Torres MD [address] [facility] , [address], [place], [address], [facility] 07/14/2024 09:47:24 09/12/2024 text/html She is here for a trial of lumbar epidural steroid injection under fluoroscopic guidance. Brandy Torres MD [address] [facility] , [address], [place], [address], [facility] 09/13/2024 15:44:52 10/12/2024 text/html She is here for a [...] bladder or bowel incontinence. Brandy Torres MD [address] [facility] , [address], [place], [address], [facility] 10/13/2024 09:12:46 OBGyn Episode No OBEpisode recorded.
--- OUTSIDE RECORDS SUMMARY | 2024-11-16 12:00 | XMS_ITS | Continuity of Care Document ---
Author Organization [place] [facility] Address [address] [facility],[address] [place] [address] Care Team Providers Care Exchange Consultant Name Role Phone GALE GALVIN Primary Care Provider [phone] Assessment Encounter Date Assessment Date Assessment LastModified by Organization Details LastModified Time 09/12/2024 09/12/2024 Kierra Clements is a 73 [...] She will follow up in four weeks [email or web address] Not available 09/12/2024 12:03:47 Plan of Treatment Reminders Order Date Submit [...] Modified By Organization Details Last Modified Time 09/12/2024 [id number] She was advised against bed rest lasting longer than four days and to continue activities as tolerated. [email or web address] Not available 09/12/2024 12:03:01 Reason for Referral None Reported. Problems Name Problem SNOMED Code Status Onset Date Resolution Date Notes Provider Name and Address Organization Details Recorded Time Spinal stenosis of lumbar region 58141450 Active Brandy de jesus MD [address] [facility] , [address], [place], [address], [place] [facility] 6 15:12:08 Lumbosacral spondylosis without myelopathy 74880691 Active Brandy de jesus MD [address] , [address], [place], [address], [place] [facility] 6 15:12:08 Displacement of lumbar intervertebral disc without myelopathy 11687673 Active Brandy de jesus MD [address] , [address], [place], [address], [place] [facility] 6 15:12:08 Lumbosacral radiculitis 76441416 Active Brandy de jesus MD [address] , [address], [place], [address], [place] [facility] 6 15:12:08 Spondylolisthe sis 267668656 Active Brandy de jesus MD [address] , [address], [place], [address], [place] [facility] 6 15:12:08 Osteoarthritis of knee 874593976 Active Brandy de jesus MD [address] , [address], [place], [address], [place] [facility] 6 15:12:08 Problem Notes None recorded. Procedures Surgical History Date Name Laterality Status Provider Name and Address Organization Details Recorded Time 09/12/20 24 Lumbar Epidural steroid injection under fluoroscopic guidance completed Brandy Torres MD [address] , [address], [place], [address], [place] [facility] 09/12/2024 12:02:32 10/03/20 18 Intra-articular Knee Steroid Injection completed Brandy Torres MD [address] , [address], [place], [address], [place] [facility] 10/03/2018 13:56:48 02/05/20 17 Intra-articular Knee Steroid Injection completed Brandy Torres MD [address] , [address], [place], [address], [place] [facility] 02/04/2017 14:33:54 06/11/20 16 Intra-articular Knee Steroid Injection completed Brandy Torres MD [address] , [address], [place], [address], [place] [facility] 06/12/2016 09:27:30 05/06/20 16 Lumbar Epidural steroid injection under fluoroscopic guidance completed Brandy Torres MD [address] , [address], [place], [address], [place] [facility] 05/06/2016 10:37:52 01/01/20 16 Lumbar Epidural steroid injection under fluoroscopic guidance completed Brandy Torres MD [address] , [address], [place], [address], [place] [facility] 01/01/2016 09:34:35 10/22/20 15 Lumbar Epidural steroid injection under fluoroscopic guidance completed Brandy Torres MD [address] , [address], [place], [address], [place] [facility] 10/23/2015 11:40:58 07/31/20 15 Lumbar Epidural steroid injection under fluoroscopic guidance completed Brandy Torres MD [address] , [address], [place], [address], [place] [facility] 08/01/2015 13:40:16 05/06/20 15 Lumbar Epidural steroid injection under fluoroscopic guidance completed Brandy Torres MD [address] , [address], [place], [address], [place] [facility] 05/06/2015 10:40:39 02/12/20 15 Fluoroscopic Guided Lumbar Facet Steroid Injections of levels completed Brandy Torres MD [address] , [address], [place], [address], [place] [facility] 02/19/2015 11:23:10 12/31/19 15 Lumbar Epidural steroid injection under fluoroscopic guidance completed Brandy Torres MD [address] , [address], [place], [address], [place] [facility] 12/31/2014 10:03:38 Arthroscopic Surgery completed Radha Davis [place] [facility] 12/28/2014 11:17:16 Other completed Radha Davis [place] [facility] 12/28/2014 11:17:16 Other completed Radha Davis [place] [facility] 12/28/2014 11:17:16 Other completed Radha aDvis [place] - [facility] 12/31/2014 08:46:03 [...] 97 % 139 mm[Hg] 82 mm[Hg] Lisa Castillo [facility] 4 11:41:12 Social History Question Answer Notes LastModified by Organizat ion Details LastModified Time Tobacco Smoking Status Former Smoker Quit x 40 years Not Available [facility] 08/23/2020 03:16:10 What Is Your Level Of Alcohol Consumption? Moderate [id number] Information not available 08/23/2020 Are You Currently Employed? No [id number] Information not available 08/23/2020 Which Illicit Or Recreational Drugs Have You Used? No [id number] Information not available 08/23/2020 Education Post Graduate [employer]ARY[employer] [email or web address] Information not available 12/28/2014 Live Alone Or With Others? With Others [email or web address] Information not available 12/28/2014 Marital Status [email or web address] Informatio n not available 12/28/2014 What Was The Date Of Your Most Recent Tobacco Screening? 10/03/2018 [id number] Information not available 08/23/2020 How Many Years Have You Smoked Tobacco? 5 [id number] Information not available 08/23/2020 Sex: Unknown Functional [...] SNOMED-CT Code Diagnosis ICD10 Code Diagnosis Note 11563 Brandy Torres MD PAIN OFFICE [address] [place] [address] 09/12/2024 11:15:23 09/12/2024 16:33:50 Spinal stenosis of lumbar region 89210422 M48.062 Lumbosacra l spondylosis without myelopathy 93768863 M47.817 Displaceme nt of lumbar intervertebral disc without myelopathy 01200793 M51.26 Spondylolisthesis 194390 003 M43.17 Lumbosacra l radiculitis 31470512 M54.17 Health Concerns Section Related Observation LastModified by Organization Detai ls LastModified Time None Recorded Concern Status LastModified by Organization Details LastModified Time None Recorded Payers Encounter Date Sequence Insurance Name Policy Number Policy Germain Covered Member ID Germain Member ID Guarantor Name 09/12/2024 1 [place] Kierrablanca Clements [id number] Kierra Clements 09/12/2024 2 [place] Kierra Clements [id number] Kierra Clements Notes Date Note Type Note Provider Name and Address Organization Details Recorded Time 09/12/2024 text/html She is here for a trial of lumbar epidural steroid injection under fluoroscopic guidance. Brandy Torres MD [address] [place] [address] , [address], [place], [address], [facility] - [facility] 09/13/2024 15:44:52 OBGyn Episode No OBEpisode recorded.
== END 2024-11-16 11:42 | disposition home or self-care (01) ==
PROVIDERS: PCP Internal Medicine; Visit Provider Orthopaedic Surgery
DX: M25.562 Pain in left knee (principal)
CPT/HCPCS: 99213; G2211

== ENCOUNTER → 2024-11-16 11:19 | Outpatient (BNVA) | payer MEDICARE, BC, SELFPAY | PROVIDERS: PCP Internal Medicine; Visit Provider Orthopaedic Surgery | DX: M25.562 Pain in left knee (principal) | CPT/HCPCS: 99212 ==

== ENCOUNTER 2025-05-17 07:26 | Outpatient (REF) | payer MEDICARE, BC, SELFPAY ==
--- NOTE | ~2025-05-17 | XR_ITS ---
EXAMINATION: XR KNEE, LEFT CLINICAL INFORMATION: M25.562 - Pain in left knee COMPARISON: 03/27/2024, 09/14/2023. TECHNIQUE: Three views of the left knee. FINDINGS: There has been a total left knee arthroplasty. Femoral, and tibial components are intact, well seated, in anatomic alignment. Associated patellar resurfacing present. No evidence of periprosthetic lucency or fracture. No bone lesions. Normal patellar alignment. No evidence of joint effusion. No soft tissue abnormalities. XR/XR knee LT 3V IMPRESSION: Left knee total arthroplasty without complication. Electronically signed by: Harsh Castillo MD 05/17/2025 01:40 PM EDT
--- OUTSIDE RECORDS SUMMARY | 2025-05-17 07:29 | XMS_ITS | Data Portability ---
Author Organization [facility] Address [address] [facility] [address] [place] [address] Care Team Providers Care Washer Engineer Name Role Phone GALE GALVIN Primary Care Provider Assessment Encounter Date Assessment Date Assessment LastModified by Organization Details LastModified Time 11/27/2021 11/27/2021 Kierra Clements is a 71 year old woman with complaints of low back pain . On exam ,she has pain on flexion. Straight leg raising test is positive on the right. MRI Lumbar spine shows degenerative changes most notable [...] raising test is positive on the right. MRI Lumbar spine shows degenerative changes most notable [...] raising test is positive on the right. MRI Lumbar spine shows degenerative changes most notable [...] raising test is positive on the right. MRI Lumbar spine shows degenerative changes most notable [...] raising test is positive on the right. MRI Lumbar spine shows degenerative changes most notable [...] By Organization Details Last Modified Time 12/16/2022 [id number] She was advised against bed rest lasting longer than four days and to continue activities as tolerated. [email or web address] Not available 12/22/2022 10:59:36 07/13/2024 [id number] She was advised against bed rest lasting longer than four days and to continue activities as tolerated. [email or web address] Not available 07/13/2024 10:47:50 09/12/2024 [id number] She was advised against bed rest lasting longer than four days and to continue activities as tolerated. [email or web address] Not available 09/12/2024 12:03:01 10/12/2024 [id number] She was advised against bed rest lasting longer than four days and to continue activities as tolerated. [email or web address] Not available 10/12/2024 16:05:53 Reason for Referral None Reported. Problems Name Problem SNOMED Code Status Onset Date Resolution Date Notes Provider Name and Address Organization Details Recorded Time Spinal stenosis of lumbar region [id number] Fazal de jesus MD [email or web address] , [address], [facility] [place], [address], [place] [facility] 6 15:12:08 Lumbosacral spondylosis without myelopathy [id number] Fazal de jesus MD [email or web address] , [address], [place], [address], [place] [facility] 6 15:12:08 Displacement of lumbar intervertebral disc without myelopathy [id number] Fazal de jesus MD [email or web address] , [address], [place], [address], [place] [facility] 6 15:12:08 Lumbosacral radiculitis [id number] Fazal de jesus MD [email or web address] , [address], [facility] [place], [address], [place] [facility] 6 15:12:08 Spondylolisthe sis [id number] Fazal de jesus MD [email or web address] , [address], [place], [address], [place] [facility] 6 15:12:08 Osteoarthritis of knee [id number] Fazal de jesus MD [address] , [address], [place], [address], [place] [facility] 6 15:12:08 Problem Notes None recorded. Procedures Surgical History Date Name Laterality Status Provider Name and Address Organization Details Recorded Time 09/12/20 24 Lumbar Epidural steroid injection under fluoroscopic guidance completed Brandy Torres MD [email or web address] , [address], [place], [address], [place] [facility] 09/12/2024 12:02:32 10/03/20 18 Intra-articular Knee Steroid Injection completed Brandy Torres MD [email or web address] , [address], [place], [address], [place] [facility] 10/03/2018 13:56:48 02/05/20 17 Intra-articular Knee Steroid Injection completed Brandy Torres MD [email or web address] , [address], [place], [address], [place] [facility] 02/04/2017 14:33:54 06/11/20 16 Intra-articular Knee Steroid Injection completed Brandy Torres MD [email or web address] , [address], [place], [address], [place] [facility] 06/12/2016 09:27:30 05/06/20 16 Lumbar Epidural steroid injection under fluoroscopic guidance completed Brandy Torres MD [email or web address] , [address], [place], [address], [place] [facility] 05/06/2016 10:37:52 01/01/20 16 Lumbar Epidural steroid injection under fluoroscopic guidance completed Brandy Torres MD [email or web address] , [address], [place], [address], [place] [facility] 01/01/2016 09:34:35 10/22/20 15 Lumbar Epidural steroid injection under fluoroscopic guidance completed Brandy Torres MD [email or web address] , [address], [place], [address], [place] [facility] 10/23/2015 11:40:58 07/31/20 15 Lumbar Epidural steroid injection under fluoroscopic guidance completed Brandy Torres MD [address] , [address], [place], [address], [place] [facility] 08/01/2015 13:40:16 05/06/20 15 Lumbar Epidural steroid injection under fluoroscopic guidance completed Brandy Torres MD [address] , [address], [place], [address], [place] [facility] 05/06/2015 10:40:39 02/12/20 15 Fluoroscopic Guided Lumbar Facet Steroid Injections of levels completed Brandy Torres MD [address] , [address], [place], [address], [place] [facility] 02/19/2015 11:23:10 12/31/19 15 Lumbar Epidural steroid injection under fluoroscopic guidance completed Brandy Torres MD [address] , [address], [place], [address], [place] [facility] 12/31/2014 [...] CAPSULES BY MOUTH THREE TIMES A DAY 2024 active Not Available Not Available Not Avai lable amoxicill in 250 mg capsule Take 1 [...] in Arterial blood by Pulse oximetry Systolic And Diastolic Provider Name and Address Organization Details Last Updated DateTime 11/27/2021 67 /min 95 % 95 % 142/78 mm[Hg] Alena Yoon [facility] 2 15:36:21 Date Recorded Heart rate Oxygen saturation Oxygen saturation in Arterial blood by Pulse oximetry Systolic And Diastolic Provider Name and Address Organization Details Last Updated DateTime 12/16/2022 72 /min 95 % 95 % 159/72 mm[Hg] Brittney Valerio [place] [facility] 3 16:10:05 Date Recorded Heart rate Oxygen saturation Oxygen saturation in Arterial blood by Pulse oximetry Systolic And Diastolic Provider Name and Address Organization Details Last Updated DateTime 07/13/2024 63 /min 95 % 95 % 119/66 mm[Hg] Karina Robertson [place] [facility] 4 10:32:15 Date Recorded Heart rate Oxygen saturation Oxygen saturation in Arterial blood by Pulse oximetry Systolic And Diastolic Provider Name and Address Organization Details Last Updated DateTime 09/12/2024 65 /min 97 % 97 % 139/82 mm[Hg] Lisa Treviño [place] [facility] 4 11:41:12 Date Recorded Heart rate Oxygen saturation Oxygen saturation in Arterial blood by Pulse oximetry Systolic And Diastolic Provider Name and Address Organization Details Last Updated DateTime 10/12/2024 67 /min 96 % 96 % 145/73 mm[Hg] Sole Luevano [place] [facility] 4 10:31:00 Social History Question Answer Notes LastModified by Organizat ion Details LastModified Time Tobacco Smoking Status Former Smoker Quit x 40 years Not Available [employer] 08/23/2020 03:16:10 Which Illicit Or Recreational Drugs Have You Used? No [id number] Information not available 08/23/2020 Education Post Graduate [employer] Information not available 12/28/2014 Live Alone Or With Others? With Others Information not available 12/28/2014 Marital Status Informatio n not available 12/28/2014 What Was The Date Of Your Most Recent Tobacco Screening? 10/03/2018 [id number] Information not available 08/23/2020 How Many Years Have You Smoked Tobacco? 5 [id number] Information not available 08/23/2020 Sex: Unknown Functional Status Question Answer Note LastModified by Organization D etails LastModified Time What is your level of alcohol consumption? Moderate [id number] Information not available 08/23/2020 Are you currently employed? No [id number] Information not available 08/23/2020 Mental Status None recorded. Family History Relationship [...] SNOMED-CT Code Diagnosis ICD10 Code Diagnosis Note [id number] Brandy Torres MD PAIN OFFICE [address] [place] [address] 12/28/2014 10:32:36 12/28/2014 13:45:12 Lumbosacral radiculitis 98223679 Spinal jenna nosis of lumbar region 65659181 Displaceme nt of lumbar intervertebral disc without myelopathy 16169350 Lumbosacra l spondylosis without myelopathy 14607963 Spondylolisthesis [id number] 37345 Brandy Torres MD PAIN OFFICE [address] [place] [address] 12/31/2014 09:01:00 12/31/2014 10:05:38 Spinal stenosis of lumbar region 47628691 Lumbosacra l spondylosis without myelopathy 59417306 Displaceme nt of lumbar intervertebral disc without myelopathy 62420286 Spondylolisthesis 006886358 Lumbosacra l radiculitis 12673838 67015 Brandy Torres MD PAIN OFFICE [address] [place] [address] 01/29/2015 09:41:19 01/29/2015 14:44:07 Spinal stenosis of lumbar region 39922640 Lumbosacra l spondylosis without myelopathy 61234173 Displaceme nt of lumbar intervertebral disc without myelopathy 65476034 Spondylolisthesis 309419944 Lumbosacra l radiculitis 85219572 90329 Brandy Torres MD PAIN OFFICE [address] [place] [address] 02/11/2015 12:57:21 02/19/2015 11:25:32 Lumbosacral spondylosis without myelopathy 21195257 Spinal jenna nosis of lumbar region 44213922 Displaceme nt of lumbar intervertebral disc without myelopathy 02887172 Spondylolisthesis 917544401 Lumbosacra l radiculitis 58059754 42436 Brandy Torres MD PAIN OFFICE [address] [address] 03/12/2015 09:15:37 03/17/2015 10:26:53 Spinal stenosis of lumbar region 32390246 Lumbosacra l spondylosis without myelopathy 84131070 Displaceme nt of lumbar intervertebral disc without myelopathy 05828075 Spondylolisthesis 237551904 Lumbosacra l radiculitis 51261314 94206 Brandy Torres MD PAIN OFFICE [address] [place] [address] 05/06/2015 09:45:43 05/07/2015 09:23:34 Spinal stenosis of lumbar region 95045746 Lumbosacra l spondylosis without myelopathy 70909496 Displaceme nt of lumbar intervertebral disc without myelopathy 06780164 Spondylolisthesis 875444005 Lumbosacra l radiculitis 72716631 13945 Brandy Torres MD PAIN OFFICE [address] [place] [address] 07/31/2015 13:43:52 08/01/2015 13:42:18 Spinal stenosis of lumbar region 73235635 Lumbosacra l spondylosis without myelopathy 17211794 Displaceme nt of lumbar intervertebral disc without myelopathy 39980441 Spondylolisthesis 003026041 Lumbosacra l radiculitis 15822660 86559 Brandy Torres MD PAIN OFFICE [address] [place] [address] 10/22/2015 14:45:47 10/23/2015 11:42:48 Spinal stenosis of lumbar region 93054173 M48.06 Lumbosacra l spondylosis without myelopathy 14884238 M47.817 Displaceme nt of lumbar intervertebral disc without myelopathy 12239557 M51.26 Spondylolisthesis 161641 003 M43.10 Lumbosacra l radiculitis 58647572 M54.17 06948 Brandy Torres MD PAIN OFFICE [address] [place] [address] 01/01/2016 08:48:43 01/01/2016 09:35:14 Spinal stenosis of lumbar region 11562831 M48.06 Lumbosacra l spondylosis without myelopathy 47438655 M47.817 Displaceme nt of lumbar intervertebral disc without myelopathy 78847431 M51.26 Spondylolisthesis 487453 003 M43.10 Lumbosacra l radiculitis 52576614 M54.17 33753 Brandy Torres MD PAIN OFFICE [address] [place] [address] 02/28/2016 11:00:14 03/02/2016 08:55:00 Spinal stenosis of lumbar region 42078709 M48.06 Lumbosacra l spondylosis without myelopathy 11173537 M47.817 Displaceme nt of lumbar intervertebral disc without myelopathy 50139471 M51.26 Spondylolisthesis 535203 003 M43.17 Lumbosacra l radiculitis 27905009 M54.17 44320 Brandy Torres MD PAIN OFFICE [address] [place] [address] 05/06/2016 09:53:45 05/06/2016 10:38:29 Spinal stenosis of lumbar region 89064407 M48.06 Lumbosacra l spondylosis without myelopathy 49032211 M47.817 Displaceme nt of lumbar intervertebral disc without myelopathy 64310550 M51.26 Spondylolisthesis 731461 003 M43.17 M43.10 Lumbosacra l radiculitis 33666429 M54.17 70501 Brandy Torres MD [facility] PA[facility]ICE [address] [place] [address] 06/11/2016 13:12:24 06/11/2016 15:22:17 Spinal stenosis of lumbar region 20834533 M48.06 Lumbosacra l spondylosis without myelopathy 11647771 M47.817 Displaceme nt of lumbar intervertebral disc without myelopathy 52660629 M51.26 Spondylolisthesis 157612 003 M43.17 M43.10 Lumbosacra l radiculitis 20302292 M54.17 Osteoarthr itis of knee 847826089 M17.12 19296 Brandy Torres MD PAIN OFFICE [address] [place] [address] 02/04/2017 11:29:59 02/04/2017 15:11:25 Spinal stenosis of lumbar region 23947181 M48.06 Lumbosacra l spondylosis without myelopathy 13446538 M47.817 Displaceme nt of lumbar intervertebral disc without myelopathy 94656903 M51.26 Spondylolisthesis 414391 003 M43.17 M43.10 Lumbosacra l radiculitis 55168900 M54.17 Osteoarthr itis of knee 440843984 M17.12 01633 Brandy Torres MD [facility] PAIN OFF[facility] [address] [place] [address] 09/22/2018 14:47:52 09/23/2018 15:00:51 Spinal stenosis of lumbar region 37192290 M48.061 Lumbosacra l spondylosis without myelopathy 96573723 M47.817 Displaceme nt of lumbar intervertebral disc without myelopathy 84493550 M51.26 Spondylolisthesis 249938 003 M43.17 M43.10 Lumbosacra l radiculitis 32258689 M54.17 Osteoarthr itis of knee 526598515 M17.12 58694 Brandy Torres MD PAIN OFFICE [address] [place] [address] 10/03/2018 13:15:01 10/03/2018 13:58:50 Spinal stenosis of lumbar region 76551034 M48.061 Lumbosacra l spondylosis without myelopathy 67974824 M47.817 Displaceme nt of lumbar intervertebral disc without myelopathy 18515564 M51.26 Spondylolisthesis 996361 003 M43.17 M43.10 Lumbosacra l radiculitis 93673981 M54.17 Osteoarthr itis of knee 996527493 M17.12 65502 Brandy Torres MD PAIN OFFICE [address] [place] [address] 11/27/2021 15:24:36 12/03/2021 11:08:39 Spinal stenosis of lumbar region 71845732 M48.062 Lumbosacra l spondylosis without myelopathy 26518361 M47.817 Displaceme nt of lumbar intervertebral disc without myelopathy 94058421 M51.26 Spondylolisthesis 929508 003 M43.17 Lumbosacra l radiculitis 88476288 M54.17 27081 Brandy Torres MD PAIN OFFICE [address] [place] [address] 12/16/2022 16:05:48 12/22/2022 11:52:44 Spinal stenosis of lumbar region 70960542 M48.062 Lumbosacra l spondylosis without myelopathy 54209767 M47.817 Displaceme nt of lumbar intervertebral disc without myelopathy 84479580 M51.26 Spondylolisthesis 610380 003 M43.17 Lumbosacra l radiculitis 28539366 M54.17 59979 Brandy Torres MD PAIN OFFICE [address] [place] [address] 07/13/2024 10:25:32 07/13/2024 10:52:14 Spinal stenosis of lumbar region 47996660 M48.062 Lumbosacra l spondylosis without myelopathy 61836920 M47.817 Displaceme nt of lumbar intervertebral disc without myelopathy 47348731 M51.26 Spondylolisthesis 907769 003 M43.17 Lumbosacra l radiculitis 73105055 M54.17 36154 Brandy Torres MD PAIN OFFICE [address] [place] [address] 09/12/2024 11:15:23 09/12/2024 16:33:50 Spinal stenosis of lumbar region 47950347 M48.062 Lumbosacra l spondylosis without myelopathy 13977092 M47.817 Displaceme nt of lumbar intervertebral disc without myelopathy 91051234 M51.26 Spondylolisthesis 956392 003 M43.17 Lumbosacra l radiculitis 32288240 M54.17 62745 Brandy Torres MD PAIN OFFICE [address] [place] [address] 10/12/2024 10:26:07 10/12/2024 16:18:51 Spinal stenosis of lumbar region 40213303 M48.062 Lumbosacra l spondylosis without myelopathy 23107826 M47.817 Displaceme nt of lumbar intervertebral disc without myelopathy 96396255 M51.26 Spondylolisthesis 512749 003 M43.17 Lumbosacra l radiculitis 23042429 M54.17 Health Concerns Section Related Observation LastModified by Organization Detai ls LastModified Time None Recorded Concern Status LastModified by Organization Details LastModified Time None Recorded Advance Directives Directive None Recorded Payers Insurance Date Sequence Insurance Name Policy Number Policy Germain Covered Member ID Germain Member ID Guarantor Name 10/09/2024 1 [place] Kierra Clements [id number] Kierra Clements 09/22/2018 2 [place] Dwight Clements [id number] Kierra Clements 10/09/2024 2 [place] Kierra Clements [id number] Kierra Starr 10/09/2024 [place] - SPECIALITY CLAIMS (MEDICARE [facility] Kierra Clements [id number] Kierra Beyerernie Notes Date Note Type Note Provider Name and Address Organization Details Recorded Time 11/27/2021 text/html She is here for a follow up. She was last seen in 2019 and had a knee replacement and has been doing well. She is on gabapentin 600mg tid and is doing well. She reports good pain benefit and no side effects. Brandy Torres MD [address] [facility] [facility] [address] , [address], [place], [address], [facility] - [facility] Management 12/03/2021 15:27:02 12/16/2022 text/html She is here for a follow up. She was last seen on Brandy Torres MD [address] , [address], [place], [address], [facility] - [facility] Management 12/23/2022 08:27:15 07/13/2024 text/html [...] within normal limits Brandy Torres MD [address] , [address], [place], [address], [facility] - [facility] 07/14/2024 09:47:24 09/12/2024 text/html She is here for a trial of lumbar epidural steroid injection under fluoroscopic guidance. Brandy Torres MD [address] , [address], [place], [address], [facility] - Pain Management 09/13/2024 15:44:52 10/12/2024 text/html She [...] bladder or bowel incontinence. Brandy Torres MD [address] [place] [address] , [address], [place], [address], [facility] 10/13/2024 09:12:46 OBGyn Episode No OBEpisode recorded.
--- OUTSIDE RECORDS SUMMARY | 2025-05-17 07:29 | XMS_ITS | Clinical Summary ---
Author Organization [facility] Address [address] [place] [address] Care Team Providers Care Immunochemist Name Role Phone Bao Thompson MD Primary Care Provider [phone] Allergies No known active allergies Medications Medication Sig Dispensed Refills Start Date End Date Status citalopram (CeleXA) 20 MG tablet citalopram 20 mg tablet 0 Active dexamethasone (DECADRON) 4 MG tablet dexamethasone 4 mg tablet 0 Active gabapentin (NEURONTIN) 300 MG capsule 0 11/16/2018 Active Ibuprofen 200 MG CAPS ibuprofen 200 mg capsule Take 2 capsules every 6 hours by oral route. 0 Active LORazepam (ATIVAN) 2 MG tablet lorazepam 2 mg tablet 0 Active celecoxib (CeleBREX) 200 MG capsule celecoxib 200 mg capsule 0 Active amoxicillin (AMOXIL) 500 MG tablet Take 4 tabs 1 hour prior to dental appointment 20 tablet 3 10/03/2019 Active warfarin (COUMADIN) 1 MG tablet Take 6 tabs daily or as directed by physician 90 tablet 0 10/03/2019 Active Additional Information Patient not taking.Reason: Other, Reported on 03/26/2020 HYDROcodone-acetam inophen (NORCO) 5-325 MG per tablet hydrocodone 5 mg-acetaminophen 325 mg tablet 0 Active Active Problems Problem Noted Date Diagnosed Date Primary osteoarthritis of left knee 04/07/2019 Chronic pain of left knee 04/07/2019 Social History Tobacco Use Types Packs/Day Years Used Date Smoking Tobacco: Former Smokeless Tobacco: Never Sex and Gender Information Value Date Recorded Sex Assigned at Not on file Gender Identity Not on file Sexual Orientation Not on file Job Start Date Occupation Industry Not on file Not on file Not on file Last Filed Vital Signs Vital Sign Reading Time Taken Comments Blood Pressure - - Pulse - - Temperature - - Respiratory Rate - - Oxygen Saturation - - Inhaled Oxygen Concentration - - Weight 90.7 kg (200 lb) 02/18/2021 11:00 AM EDT Height 160 cm (5' 3 ) 08/22/2019 12:52 PM EDT Body Mass Index 35.43 08/22/2019 12:52 PM EDT Plan of Treatment Health Maintenance Due Date Last Done Comments Hepatitis C Screening 1950 COVID-19 Vaccine (#1) 06/01/1951 Depression Screening 1960 BMI Counseling 1966 Preventative Health Evaluation 1966 DTap / Tdap / Td (1 - Tdap) 1967 Fall Risk Assessment 2013 Osteoporosis Screening (DEXA Scan) 2013 Pneumococcal Vaccine (1 of 1 - PCV) 2013 RSV Adult > 60+ Yrs or (1 - 1-dose 75+ series) 2023 Influenza Vaccine (#1) 2025 , 09/10/2010 Shingrix-Zoster Vaccine Completed 03/16/20, 01/13/2019 Hepatitis B Vaccines Aged Out No long er eligible based on patient's age to complete this topic RSV Ped < 20 months Aged Out No longe r eligible based on patient's age to complete this topic Care Teams Immunochemist Relationship Specialty Start Date End Date Bao Thompson MD [address] [place] [id number] PCP - General Buckle And Button Maker 11/21/18
--- OUTSIDE RECORDS SUMMARY | 2025-05-17 07:29 | XMS_ITS ---
Author Name [facility] Organization Unknown Encounters Encounter Type Encounter Reason Primary Diagnosis Location Date Ambulatory [facility] 05/20/2023 Ambulatory [facility] 05/20/2023
--- OUTSIDE RECORDS SUMMARY | 2025-05-17 07:30 | XMS_ITS | Clinical Summary ---
Author Organization [facility] it Address [address] [place] [address] Care Team Providers Care Book Shelver Name Role Phone Bao Gould MD Primary Care Provider [phone] Surgical History Surgery Date Site/Laterality Comments KNEE SURGERY PROCEDURE:KNEE SURGERY FOOT SURGERY PROCEDURE:FOOT SURGERY JOINT REPLACEMENT PROCEDURE:JOINT REPLACEMENT Social History Tobacco Use Types Packs/Day Years Used Date Smoking Tobacco: Former Smokeless Tobacco: Never Comments Unknown Sex and Gender Information Value Date Recorded Sex Assigned at Not on file Legal Sex Female 9:42 PM EST Gender Identity Not on file Sexual Orientation Not on file Obstetrics History Plan of Treatment Health Maintenance Due Date Last Done Comments DTaP,Tdap,and Td Vaccines (1 - Tdap) 1967 Pneumococcal Vaccine: 50+ Years (1 of 1 - PCV) 1998 Depression Screening 10/10/2022 Falls Risk Assessment 10/10/2022 Hepatitis C Screening 10/10/2022 Osteoporosis Screening (Bone Density Screening) 10/10/2022 Social Influencers of Health Screening 10/10/2022 RSV Immunization Adult Patients (1 - 1-dose 75+ series) 2023 COVID-19 Vaccine ( - 2023-2 5 season) 2024 Influenza Vaccine (#1) 2025 9, 09/10/2010 Zoster Vaccines Completed 03/16/2019, 01/13/2019 HIB Vaccines Aged Out No longer eligi ble based on patient's age to complete this topic HPV Vaccines Aged Out No longer eligi ble based on patient's age to complete this topic Hepatitis A Vaccines Aged Out No long er eligible based on patient's age to complete this topic Hepatitis B Vaccines Aged Out No long er eligible based on patient's age to complete this topic IPV Vaccines Aged Out No longer eligi ble based on patient's age to complete this topic MMR Vaccines Aged Out No longer eligi ble based on patient's age to complete this topic Meningococcal ACWY Vaccine Aged Out N o longer eligible based on patient's age to complete this topic Meningococcal B Vaccine Aged Out No l onger eligible based on patient's age to complete this topic RSV Immunization Patients Under 20 months Aged Out No longer eligible b ased on patient's age to complete this topic Varicella Vaccines Aged Out No longer eligible based on patient's age to complete this topic Advance Directives Documents on File Type Date Recorded Patient Electrician Sound Expl anation Health Care Decision (hx) 09/18/2019 AD CODY DIRECTIVE Health Care Decision (hx) 09/18/2019 AD CODY DIRECTIVE Health Care Decision (hx) 09/18/2019 AD CODY DIRECTIVE Care Teams Book Shelver Relationship Specialty Start Date End Date Bao Gould MD PCP - General Transistor Tester 11/21/18
== END 2025-05-17 07:27 | disposition home or self-care (01) ==
LOC: HO.HOSX 07:26
PROVIDERS: Visit Provider Orthopaedic Surgery
DX: M25.562 Pain in left knee (principal); M54.50 Low back pain, unspecified; M79.604 Pain in right leg; Z96.652 Presence of left artificial knee joint
CPT/HCPCS: 73562; 99212

== ENCOUNTER 2025-05-17 13:11 | Outpatient (AMB) | payer MEDICARE, BC, SELFPAY ==
--- NOTE | 2025-05-17 13:17 | A.OFFVIS_ITS ---
Vital Signs 05/17/25 13:18 Height 5 ft 3 in Weight 215 lb BMI 38.1 Intake Visit Reasons: OV-Lt knee replacement 09/18/2019 DR toro/melinda, Low back pain Intake Note: Kierra is a 74 year old female who presents for follow up after undergoing a left knee arthroplasty on 09/18/2019. She reports mild intermittent discomfort in her left knee. Today she is most concerned with progressively worsening low back pain which radiates into both of her legs. Her back pain has gotten worse over the last few years in spite of continued non operative treatments. She has failed the last 6 weeks of conservative treatment which has included Tylenol, Celebrex and gabapentin. She also reports intermittent weakness in her legs. Allergies No Known Allergies Allergy (Verified 05/17/25 13:19) Medication List - Last Reconciled 05/17/25 by Elton Harris MD amoxicillin 500 mg PO BID celecoxib (Celebrex) 200 mg PO DAILY PRN citalopram 10 mg PO DAILY fluticasone propionate 50 mcg/actuation 1 spray intranasal DAILY gabapentin 100 mg PO DAILY glucosamine sulfate 500 mg PO DAILY latanoprost 0.005% drps ophthalmic (eye) timolol 0.5% 1 drp ophthalmic (eye) DAILY PFSH Surgical History (Updated 04/05/24 @ 11:18 by Susi Alvarado CMA) Hx of left knee surgery (09/18/19) Social History (Updated 09/14/23 @ 10:15 by Cindy Agarwal [facility]) Current occupational status: retired Physical Exam Vital Signs: BMI result Body Mass Index 38.1 Const Other: Well-nourished well-developed very friendly female awake alert and oriented x3 in no acute distress Back/Spine/Pelvis Other: Low back examination shows bilateral paraspinal muscle tenderness, pain with range of motion, positive straight leg raise test bilaterally at 70 degrees, 4/5 strength with testing of her bilateral hip flexors and knee extensors Extrem Other: Left knee examination shows that the surgical incision is well healed, no erythema, full active extension and flexion to 120 degrees, her patella tracks well Results Reviewed Results Reviewed: X-rays of the patient's left knee show a total knee arthroplasty in good position with no signs of loosening, no acute bony abnormalities Assessment & Plan Assessment & Plan (1) Low back pain radiating to both legs: Code(s): M54.50 - Low back pain, unspecified; M79.604 - Pain in right leg; M79.605 - Pain in left leg Category: Medical (2) Left knee pain: Code(s): M25.562 - Pain in left knee Category: Medical Plan Ms. Clements presents with progressively worsening low back pain which radiates into both of her legs as well as associated bilateral leg weakness possibly due to lumbar stenosis or a disc herniation. Thus, I will send the patient for an MRI of her lumbar spine for further evaluation. I will contact her by phone once the MRI results are available. She will call me prior to that time should her symptoms worsen in any way. I spent 21 minutes in reviewing the patient's records and imaging studies, seeing the patient and documenting in the medical record. Orders: Orders XR knee LT 3V Today M25.562 - Pain in left knee MR lumbar spine wo con 05/18/25 M54.50 - Low back pain, unspecified, M79.604 - Pain in right leg, M79.605 - Pain in left leg Coding Level of Care Code Est Pt Level 3 (04257) Complex EM visit Add On G2211 Diagnoses Low back pain radiating to both legs M54.50; M79.604; M79.605 Left knee pain M25.562
[2025-05-17 13:18] VITALS: BMI 38.1
== END 2025-05-17 13:34 | disposition home or self-care (01) ==
LOC: HO.HOS 13:12
PROVIDERS: PCP Internal Medicine; Visit Provider Orthopaedic Surgery
DX: M54.50 Low back pain, unspecified (principal); M79.604 Pain in right leg; M79.605 Pain in left leg; M25.562 Pain in left knee
CPT/HCPCS: 99213; G2211

== ENCOUNTER → 2025-05-17 13:14 | Outpatient (BNV) | payer MEDICARE, BC, SELFPAY | PROVIDERS: Visit Provider Radiology Diagnostic Radiology | DX: Z96.652 Presence of left artificial knee joint (principal) | CPT/HCPCS: 73562 ==

== ENCOUNTER → 2025-06-12 07:09 | Outpatient (BNV) | payer MEDICARE, BC, SELFPAY | PROVIDERS: PCP Internal Medicine; Visit Provider Radiology Diagnostic Radiology | DX: M48.061 Spinal stenosis, lumbar region without neurogenic claudication (principal) | CPT/HCPCS: 72148 ==

== ENCOUNTER 2025-06-12 07:15 | Outpatient (REF) | payer MEDICARE, BC, SELFPAY ==
--- NOTE | ~2025-06-12 | MR_ITS ---
EXAM: MRI Lumbar Spine without Contrast. TECHNIQUE: Multiplanar multisequence MR imaging was performed through the lumbar spine without contrast. INDICATION: Low back pain when walking or traversing stairs, chronic and worsening with intermittent flash of pain down the leg , no trauma PRIOR: None FINDINGS: 5 non-rib bearing lumbar segments are assumed for numbering purposes. If level specific intervention is planned, correlate with an x-ray to ensure concordant numbering. Marrow and end-plates: Focal Modic 1 change is present in the posterior inferior L3. Focal Modic 2 change is present anterior superior L4 vertebral body. Alignment: There is grade 1 anterolisthesis at L3-4 and L4-5. Soft tissues: There is bland edema in the subcutaneous soft tissues dorsal to the lumbar spine. Conus: The termination of conus medullaris is within normal limits at the level of L1. T12-L1: There is mild loss disc height and disc desiccation. There is no disc bulge, herniation, spinal stenosis, or foraminal narrowing. L1-L2: There is no disc bulge, herniation, spinal stenosis, or foraminal narrowing. L2-L3: There is disc desiccation and mild circumferential broad-based disc bulge. There is moderate ligamentum flavum thickening and moderate facet osteoarthritis. There is laxity of ligament flavum on the right and inward bowing. There is mild to moderate spinal stenosis. There is mild to moderate right and mild left foraminal narrowing. L3-L4: Severe disc bulge and ligamentum flavum thickening with moderate to severe facet hypertrophy results in severe spinal stenosis. There is mild bilateral foraminal narrowing, greater on the right. L4-L5: Anterolisthesis with moderate ligamentum flavum thickening and moderate to severe facet arthropathy results in moderate spinal stenosis. There is minimal foraminal narrowing. L5-S1: There is moderate severe loss of disc height and circumferential broad-based disc bulge with endplate osteophytes mildly contacting the thecal sac and mildly narrowing both subarticular zones with possible encroachment on S1 nerve roots. There is minimal foraminal narrowing. MR/MR lumbar spine wo con IMPRESSION: L2-L3: There is mild to moderate spinal stenosis. L3-L4: There is severe spinal stenosis. L4-L5: There is moderate spinal stenosis. L5-S1: There is possible encroachment of bilateral S1 nerve roots in the subarticular zone. Electronically signed by: Hugh Maldonado MD 06/12/2025 11:17 AM EDT RP
--- OUTSIDE RECORDS SUMMARY | 2025-06-12 07:17 | XMS_ITS | Clinical Summary ---
Author Organization [facility] Address [address] [place] [address] Care Team Providers Care 4Th Grade Math Teacher Name Role Phone Bao Thompson MD Primary Care Provider [phone] Allergies No known active allergies Medications Medication [...] age to complete this topic Care Teams 4Th Grade Math Teacher Relationship Specialty Start Date End Date Bao Thompson MD [address] [place] [id number] PCP - General [employer] 11/21/18
--- OUTSIDE RECORDS SUMMARY | 2025-06-12 07:17 | XMS_ITS | Clinical Summary ---
Author Organization [facility] it Address [address] [place] [address] Care Team Providers Care Consumer Insights Specialist Name Role Phone Bao Gould MD Primary Care Provider [phone] Surgical History Surgery Date Site/Laterality Comments KNEE [...] Years (1 of 1 - PCV) 1998 Falls Risk Assessment 10/10/2022 Hepatitis C Screening 10/10/2022 Osteoporosis Screening (Bone Density Screening) 10/10/2022 Social Influencers of Health Screening 10/10/2022 RSV Immunization Adult Patients (1 - 1-dose 75+ series) 2023 COVID-19 Vaccine ( - 2023-2 5 season) 2024 Depression Screening 11/08/2024 Influenza Vaccine (#1) 2025 9, 09/10/2010 Zoster [...] Documents on File Type Date Recorded Patient Safety Lamp Keeper Expl anation Health Care Decision (hx) 09/18/2019 AD CODY DIRECTIVE Health Care Decision (hx) 09/18/2019 AD CODY DIRECTIVE Health Care Decision (hx) 09/18/2019 AD CODY DIRECTIVE Care Teams Consumer Insights Specialist Relationship Specialty Start Date End Date Bao Gould MD PCP - General Casting And Pasting Supervisor 11/21/18
== END 2025-06-12 07:16 | disposition home or self-care (01) ==
LOC: HO.MRI 07:15
PROVIDERS: PCP Internal Medicine; Visit Provider Orthopaedic Surgery
DX: M54.50 Low back pain, unspecified (principal); M79.604 Pain in right leg; M79.605 Pain in left leg
CPT/HCPCS: 72148

== ENCOUNTER 2025-08-06 10:16 | Outpatient (AMB) | payer MEDICARE, BC, SELFPAY ==
[2025-08-06 10:21] VITALS: BMI 38.1
--- NOTE | 2025-08-06 10:21 | A.SPINEOV_ITS ---
Vital Signs 08/06/25 10:21 Height 5 ft 3 in Weight 215 lb BMI 38.1 Intake Visit Reasons: LBP & Steven leg pain Intake Note: Ms. Clements is here today c/o Low back pain that radiate to both legs. Strong Nitric Operator Required: No Allergies No Known Allergies Allergy (Verified 08/06/25 10:31) Physical Exam Vital Signs: BMI result Body Mass Index 38.1 Assessment & Plan Assessment & Plan (1) Low back pain radiating to both legs: Code(s): M54.50 - Low back pain, unspecified; M79.604 - Pain in right leg; M79.605 - Pain in left leg Category: Medical Plan Dear dr Harris, Thank you for referring Mrs Clements to our office today. She is a very nice 74-year-old female presents for evaluation of low back pain, and bilateral lower extremity fatigue/loss of strength in her legs. The symptoms have been coming on for quite some time. In 2022 as when she really noticed it became a problem. She likes to do rowing, and noticed she could not take the boat out to the water and back up because of the trouble with the pain and the feeling in her legs. Walking stairs is very difficult. When she goes to the grocery store she has to take the cart just for some security. The pain does get better when she sits down, but as soon as she gets back up to walk it returns. She localizes it over the lower lumbar area, however it can radiate up into the back higher in the lumbar spine. It will also radiate down toward her tailbone. She has been gaining weight which is frustrating her and she thinks that is also making things worse. She has been through extensive conservative treatment including physical therapy several times, chiropractor, as well as cortisone injections with Dr. Torres. She also takes Tylenol, Motrin and gabapentin help with the pain. These things help temporarily, but in general do not ever really solve the problem. She underwent a lumbar MRI showing multilevel degenerative disc disease and stenosis. PMH: She is relatively healthy, no major systemic disease to report, she does have a history of anxiety, toe surgery, cataract surgery, knee replacement on the left side, resection of skin cancer on her face on the left side. Denies any issues with cardiopulmonary system, liver, kidney disease, coagulopathies, blood clots, major abdominal surgery, diabetes etc.. Social hx: She does not smoke, drink or use any recreational drugs Medications: Citalopram, gabapentin, timolol, latanoprost, Tylenol, ibuprofen, the glucosamine, amoxicillin prophylactic before dental appointment, fluticasone and Celebrex Allergies: None Physical exam: Awake alert oriented no acute distress, she has a slightly antalgic gait, somewhat unsteady walking down the hallway, strength is normal, absent reflexes at the patella and the Achilles. She localizes her pain to palpation over the lower lumbar area. Imaging review: Lumbar MRI done at [facility] shows multilevel degenerative disc disease, spondylolisthesis L3-4 grade 1 with moderate to severe stenosis, spondylolisthesis grade 1 L4-5 with severe stenosis, severe degenerative disc disease at L5-S1. Impression: 74-year-old female presents with chronic low back pain, progressive trouble walking with feeling of fatigue and weakness in her legs. The symptoms are aggravated with standing and walking. Get better when she sits down. Normally by the afternoon it gets to be so bad that she mostly has to stop doing any activity she was doing. She is very frustrated in his causing her to gain weight. Her MRI clearly shows she has reasons for her discomfort, specifically she has spondylolisthesis L3-4 and L4-5 in addition to disc degeneration at L5- S1. She has severe stenosis at L3-4 and L4-5. She has been through extensive conservative treatment. I am going to get a set of upright flexion-extension x- rays to evaluate for any signs of instability. Once I have a chance to review everything with Dr. Zarate I will come up with a surgical plan for her. I talked with her about the fact that if there is any signs of instability on the x-rays she will likely need fusion surgery. We did discuss that briefly what that would mean as well as recovery. Thank you for allowing us to care for your patient. The total time spent with this visit with this patient was 45 minutes reviewing history, physical exam, lumbar imaging review, and implementation of treatment plan or further diagnostic testing Crescencio Zarate MD,PhD [facility] Orders: Orders XR lumbar spine 4V min Today M54.50 - Low back pain, unspecified, M79.604 - Pain in right leg, M79.605 - Pain in left leg Coding Level of Care Code New Pt Level 4 (53018) Diagnoses Low back pain radiating to both legs M54.50; M79.604; M79.605
--- OUTSIDE RECORDS SUMMARY | 2025-08-06 11:25 | XMS_ITS | Clinical Summary ---
Author Organization [facility] it Address [address] [place] [address] Care Team Providers Care Beading Installer Name Role Phone Bao Gould MD Primary Care Provider [phone] Surgical History Surgery Date Site/Laterality Comments KNEE [...] Patients (1 - 1-dose 75+ series) 2023 Depression Screening 11/08/2024 COVID-19 Vaccine ( - 2023-2 5 season) 2025 Influenza Vaccine (#1) 2025 9, 09/10/2010 Zoster [...] Documents on File Type Date Recorded Patient Property Management Bookkeeper Expl anation Health Care Decision (hx) 09/18/2019 AD CODY DIRECTIVE Health Care Decision (hx) 09/18/2019 AD CODY DIRECTIVE Health Care Decision (hx) 09/18/2019 AD CODY DIRECTIVE Care Teams Beading Installer Relationship Specialty Start Date End Date Bao Gould MD PCP - General Life Management Teacher 11/21/18
--- OUTSIDE RECORDS SUMMARY | 2025-08-06 11:25 | XMS_ITS | Clinical Summary ---
Author Organization [facility] Address [address] [place] [address] Care Team Providers Care Manufacturing Process Engineer Name Role Phone Bao Thompson MD Primary Care Provider [phone] Allergies No known active allergies Medications Medication [...] age to complete this topic Care Teams Manufacturing Process Engineer Relationship Specialty Start Date End Date Bao Thompson MD [address] [place] [id number] PCP - General Fretted Instrument Maker Hand 11/21/18
== END 2025-08-06 11:16 | disposition home or self-care (01) ==
LOC: HO.HNS 10:17
PROVIDERS: PCP Internal Medicine; Referring Provider Orthopaedic Surgery; Visit Provider Physician Assistant
DX: M54.50 Low back pain, unspecified (principal); M79.604 Pain in right leg; M79.605 Pain in left leg
CPT/HCPCS: 99204

== ENCOUNTER 2025-08-06 10:16 | Outpatient (REF) | payer MEDICARE, BC, SELFPAY ==
--- NOTE | ~2025-08-06 | XR_ITS ---
EXAMINATION: XR LUMBOSACRAL SPINE CLINICAL INFORMATION: M54.50 - Low back pain, unspecified COMPARISON: Correlated to MRI dated June 12, 2025. TECHNIQUE: Lateral views in neutral, flexion and extension position. AP view lumbar spine. FINDINGS: Levoconvex curvature with a rotatory component. Grade 1 anterolisthesis L3-4, and L4-5 without motion during flexion and or extension position. Multilevel endplate sclerosis and marginal osteophyte formation. Osteopenia versus osteoporosis. No lytic or blastic lesions. No acute fracture. Abundant stool within the large intestine overlapping the osseous structures. Patient's large body habitus. XR/XR lumbar spine 4V min IMPRESSION: Multilevel spondylosis, grade 1 anterolisthesis L3-4 and L4-5 without instability. Levoconvex scoliosis. Electronically signed by: Yared Rivers MD 08/06/2025 11:21 AM EDT
--- OUTSIDE RECORDS SUMMARY | 2025-08-06 12:28 | XMS_ITS | Data Portability ---
Author Organization [facility] PA[facility] Address [address] [facility] [address] [place] [address] Care Team Providers Care Salon Supervisor Name Role Phone GALE GALVIN Primary Care Provider Assessment Encounter Date Assessment Date Assessment LastModified by Organization Details LastModified Time 11/27/2021 11/27/2021 iKerra Clements is a 71 year old woman [...] By Organization Details Last Modified Time 12/16/2022 [id number] She was advised against bed rest lasting longer than four days and to continue activities as tolerated. [email or web address] Not available 12/22/2022 10:59:36 07/13/2024 [id number] She was advised against bed rest lasting longer than four days and to continue activities as tolerated. [email or web address] Not available 07/13/2024 10:47:50 09/12/2024 [id number] She was advised against bed rest lasting longer than four days and to continue activities as tolerated. [email or web address] Not available 09/12/2024 12:03:01 10/12/2024 [id number] She was advised against bed rest lasting longer than four days and to continue activities as tolerated. [email or web address] Not available 10/12/2024 16:05:53 Reason for Referral None Reported. Problems Name Problem SNOMED Code Status Onset Date Resolution Date Notes Provider Name and Address Organization Details Recorded Time Spinal stenosis of lumbar region [id number] Fazal de jesus MD [address] , [address], [facility] [place], [address], [place] [facility] 6 15:12:08 Lumbosacral spondylosis without myelopathy 84391619 Fazal de jesus MD [address] , [address], [facility] [place], [address], [place] [facility] 6 15:12:08 Displacement of lumbar intervertebral disc without myelopathy [id number] Fazal de jesus MD [address] , [address], [place], [address], [place] [facility] 6 15:12:08 Lumbosacral radiculitis [id number] Fazal de jesus MD [address] , [address], [facility] [place], [address], [place] [facility] 6 15:12:08 Spondylolisthe sis [id number] Fazal de jesus MD [address] , [address], [place], [address], [place] [facility] 6 15:12:08 Osteoarthritis of knee [id number] Fazal de jesus MD [address] , [address], [place], [address], [place] [facility] 6 15:12:08 Problem Notes None recorded. Procedures Surgical History Date Name Laterality Status Provider Name and Address Organization Details Recorded Time 09/12/20 24 Lumbar Epidural steroid injection under fluoroscopic guidance completed Brandy Torres MD [address] , [address], [place], [address], [place] [facility] 09/12/2024 12:02:32 10/03/20 18 Intra-articular Knee Steroid Injection completed Brandy Torres MD [address] , [address], [place], [address], [place] [facility] 10/03/2018 13:56:48 02/05/20 17 Intra-articular Knee Steroid Injection completed Brandy Torres MD [address] , [address], [place], [address], [place] [facility] 02/04/2017 14:33:54 06/11/20 16 Intra-articular Knee Steroid Injection completed Brandy Torres MD [address] , [address], [place], [address], [place] [facility] 06/12/2016 09:27:30 05/06/20 16 Lumbar Epidural steroid injection under fluoroscopic guidance completed Brandy Torres MD [address] , [address], [place], [address], [place] [facility] 05/06/2016 10:37:52 01/01/20 16 Lumbar Epidural steroid injection under fluoroscopic guidance completed Brandy Torres MD [address] , [address], [place], [address], [place] [facility] 01/01/2016 09:34:35 10/22/20 15 Lumbar Epidural steroid injection under fluoroscopic guidance completed Brandy Torres MD [address] , [address], [place], [address], [place] [facility] 10/23/2015 11:40:58 07/31/20 15 Lumbar Epidural steroid injection under fluoroscopic guidance completed Brandy Torres MD [address] , [address], [place], [address], [place] [facility] 08/01/2015 13:40:16 05/06/20 15 Lumbar Epidural steroid injection under fluoroscopic guidance completed Brandy Torres MD [address] , [address], [place], [address], [place] [facility] 05/06/2015 10:40:39 02/12/20 15 Fluoroscopic Guided Lumbar Facet Steroid Injections of levels completed Brandy Torres MD [address] , [address], [place], [address], [place] [facility] 02/19/2015 11:23:10 12/31/19 15 Lumbar Epidural steroid injection under fluoroscopic guidance completed Brandy Torres MD [address] , [address], [place], [address], [place] [facility] 12/31/2014 [...] % 95 % 142/78 mm[Hg] Alena Yoon [facility] 2 15:36:21 Date Recorded Heart rate Oxygen saturation Oxygen saturation in Arterial blood by Pulse oximetry Pain severity - 0-10 verbal numeric rating [Score] - Reported Systolic And Diastolic Provider Name and Address Organization Details Last Updated DateTime 3 72 /min 95 % 95 % 6 159/72 mm[Hg] Brittney de jesus [facility] 3 16:10:05 Date Recorded Heart rate Oxygen saturation Oxygen saturation in Arterial blood by Pulse oximetry Pain severity - 0-10 verbal numeric rating [Score] - Reported Systolic And Diastolic Provider Name and Address Organization Details Last Updated DateTime 4 63 /min 95 % 95 % 5 119/66 mm[Hg] Karina Robertson [facility] 4 10:32:15 Date Recorded Heart rate Oxygen saturation Oxygen saturation in Arterial blood by Pulse oximetry Systolic And Diastolic Provider Name and Address Organization Details Last Updated DateTime 09/12/2024 65 /min 97 % 97 % 139/82 mm[Hg] Lisa Treviño [facility] 4 11:41:12 Date Recorded Heart rate Oxygen saturation Oxygen saturation in Arterial blood by Pulse oximetry Pain severity - 0-10 verbal numeric rating [Score] - Reported Systolic And Diastolic Provider Name and Address Organization Details Last Updated DateTime 4 67 /min 96 % 96 % 6 145/73 mm[Hg] Sole gonzales [place] - [facility] 4 10:31:00 Social History Question Answer Notes LastModified by Organizat ion Details LastModified Time Tobacco Smoking Status Former Smoker Quit x 40 years Not Available [employer] 08/23/2020 03:16:10 Which Illicit Or Recreational Drugs Have You Used? No [id number] Information not available 08/23/2020 Education Post Graduate [employer] [email or web address] Information not available 12/28/2014 Live Alone Or With Others? With Others Information not available 12/28/2014 Marital Status Informatio n not available 12/28/2014 What Was The Date Of Your Most Recent Tobacco Screening? 10/03/2018 [id number] Information not available 08/23/2020 How Many Years Have You Smoked Tobacco? 5 [id number] Information not available 08/23/2020 Sex: Unknown Functional Status Question Answer Note LastModified by Organization D etails LastModified Time What is your level of alcohol consumption? Moderate [id number] Information not available 08/23/2020 Are you currently employed? No [id number] Information not available 08/23/2020 Mental Status None [...] Diagnosis SNOMED-CT Code Diagnosis ICD10 Code Diagnosis IMO Codes Diagnosis Note [id number] Brandy Torres MD PAIN OFFICE [address] [place] [address] 12/28/2014 10:32:36 12/28/2014 13:45:12 Lumbosacral radiculitis 99122341 Spinal jenna nosis of lumbar region 63328047 Displaceme nt of lumbar intervertebral disc without myelopathy 21498758 Lumbosacra l spondylosis without myelopathy 25250633 Spondylolisthesis 482198913 08063 Brandy Torres MD PAIN OFFICE [address] [facility] [place] [address] 12/31/2014 09:01:00 12/31/2014 10:05:38 Spinal stenosis of lumbar region 21366193 Lumbosacra l spondylosis without myelopathy 82713605 Displaceme nt of lumbar intervertebral disc without myelopathy 63649343 Spondylolisthesis 758651445 Lumbosacra l radiculitis 16231455 38042 Brandy Torres MD PAIN OFFICE [address] [facility] [place] [address] 01/29/2015 09:41:19 01/29/2015 14:44:07 Spinal stenosis of lumbar region 33687504 Lumbosacra l spondylosis without myelopathy 82065134 Displaceme nt of lumbar intervertebral disc without myelopathy 83060835 Spondylolisthesis 570979003 Lumbosacra l radiculitis 62181383 58056 Brandy Torres MD PAIN OFFICE [address] [facility] [place] [address] 02/11/2015 12:57:21 02/19/2015 11:25:32 Lumbosacral spondylosis without myelopathy 67112843 Spinal jenna nosis of lumbar region 89713501 Displaceme nt of lumbar intervertebral disc without myelopathy 22422861 Spondylolisthesis 652508161 Lumbosacra l radiculitis 16112807 99665 Brandy Torres MD PAIN OFFICE [address] [facility] [place] [address] 03/12/2015 09:15:37 03/17/2015 10:26:53 Spinal stenosis of lumbar region 56517140 Lumbosacra l spondylosis without myelopathy 23568686 Displaceme nt of lumbar intervertebral disc without myelopathy 81933628 Spondylolisthesis 437239744 Lumbosacra l radiculitis 54382768 83514 Brandy Torres MD PAIN OFFICE [address] [facility] [place] [address] 05/06/2015 09:45:43 05/07/2015 09:23:34 Spinal stenosis of lumbar region 92197625 Lumbosacra l spondylosis without myelopathy 95580007 Displaceme nt of lumbar intervertebral disc without myelopathy 63469292 Spondylolisthesis 723201428 Lumbosacra l radiculitis 50920007 72747 Brandy Torres MD [facility] PAIN OFFICE [address] [place] [address] 07/31/2015 13:43:52 08/01/2015 13:42:18 Spinal stenosis of lumbar region 50498062 Lumbosacra l spondylosis without myelopathy 74423613 Displaceme nt of lumbar intervertebral disc without myelopathy 03188044 Spondylolisthesis 093980841 Lumbosacra l radiculitis 66614455 61449 Brandy Torres MD [facility] PAIN OFFICE [address] [place] [address] 10/22/2015 14:45:47 10/23/2015 11:42:48 Spinal stenosis of lumbar region 56406812 M48.06 Lumbosacra l spondylosis without myelopathy 45044350 M47.817 Displaceme nt of lumbar intervertebral disc without myelopathy 47639145 M51.26 Spondylolisthesis 063438 003 M43.10 Lumbosacra l radiculitis 42808530 M54.17 85735 Brandy Torres MD [facility] PAIN OFFICE [address] [place] [address] 01/01/2016 08:48:43 01/01/2016 09:35:14 Spinal stenosis of lumbar region 38041422 M48.06 Lumbosacra l spondylosis without myelopathy 69355714 M47.817 Displaceme nt of lumbar intervertebral disc without myelopathy 04063354 M51.26 Spondylolisthesis 827085 003 M43.10 Lumbosacra l radiculitis 56867099 M54.17 89607 Brandy Torres MD [facility] PAIN OFFICE [address] [place] [address] 02/28/2016 11:00:14 03/02/2016 08:55:00 Spinal stenosis of lumbar region 69715800 M48.06 Lumbosacra l spondylosis without myelopathy 48832947 M47.817 Displaceme nt of lumbar intervertebral disc without myelopathy 08881630 M51.26 Spondylolisthesis 636982 003 M43.17 Lumbosacra l radiculitis 94308028 M54.17 34451 Brandy Torres MD [facility] PAIN OFFICE [address] [place] [address] 05/06/2016 09:53:45 05/06/2016 10:38:29 Spinal stenosis of lumbar region 10392490 M48.06 Lumbosacra l spondylosis without myelopathy 97385481 M47.817 Displaceme nt of lumbar intervertebral disc without myelopathy 12194491 M51.26 Spondylolisthesis 881261 003 M43.17 M43.10 Lumbosacra l radiculitis 89704121 M54.17 26586 Brandy Torres MD PAIN OFFICE [address] [place] [address] 06/11/2016 13:12:24 06/11/2016 15:22:17 Spinal stenosis of lumbar region 26204347 M48.06 Lumbosacra l spondylosis without myelopathy 20859235 M47.817 Displaceme nt of lumbar intervertebral disc without myelopathy 74814516 M51.26 Spondylolisthesis 103299 003 M43.17 M43.10 Lumbosacra l radiculitis 42889535 M54.17 Osteoarthr itis of knee 726889955 M17.12 08197 Brandy Torres MD PAIN OFFICE [address] [place] [address] 02/04/2017 11:29:59 02/04/2017 15:11:25 Spinal stenosis of lumbar region 05436394 M48.06 Lumbosacra l spondylosis without myelopathy 08439062 M47.817 Displaceme nt of lumbar intervertebral disc without myelopathy 51163069 M51.26 Spondylolisthesis 231872 003 M43.17 M43.10 Lumbosacra l radiculitis 08522586 M54.17 Osteoarthr itis of knee 690263480 M17.12 68812 Brandy Torres MD [facility] PAIN OFFICE [address] [place] [address] 09/22/2018 14:47:52 09/23/2018 15:00:51 Spinal stenosis of lumbar region 19862390 M48.061 Lumbosacra l spondylosis without myelopathy 81374843 M47.817 Displaceme nt of lumbar intervertebral disc without myelopathy 09615359 M51.26 Spondylolisthesis 320533 003 M43.17 M43.10 Lumbosacra l radiculitis 86757241 M54.17 Osteoarthr itis of knee 753287471 M17.12 76252 Brandy Torres MD [facility] PAIN OFFICE [address] [place] [address] 10/03/2018 13:15:01 10/03/2018 13:58:50 Spinal stenosis of lumbar region 95427422 M48.061 Lumbosacra l spondylosis without myelopathy 33111820 M47.817 Displaceme nt of lumbar intervertebral disc without myelopathy 64316990 M51.26 Spondylolisthesis 019142 003 M43.17 M43.10 Lumbosacra l radiculitis 73338771 M54.17 Osteoarthr itis of knee 718651965 M17.12 70857 Brandy Torres MD PAIN OFFICE [address] [place] [address] 11/27/2021 15:24:36 12/03/2021 11:08:39 Spinal stenosis of lumbar region 70331006 M48.062 Lumbosacra l spondylosis without myelopathy 49436836 M47.817 Displaceme nt of lumbar intervertebral disc without myelopathy 28850117 M51.26 Spondylolisthesis 519527 003 M43.17 Lumbosacra l radiculitis 21164986 M54.17 46166 Brandy Torres MD [facility] PAIN OFFICE [address] [place] [address] 12/16/2022 16:05:48 12/22/2022 11:52:44 Spinal stenosis of lumbar region 67472974 M48.062 Lumbosacra l spondylosis without myelopathy 06413794 M47.817 Displaceme nt of lumbar intervertebral disc without myelopathy 29919083 M51.26 Spondylolisthesis 979117 003 M43.17 Lumbosacra l radiculitis 93889539 M54.17 46447 Brandy Torres MD [facility] PAIN OFFICE [address] [facility] [place] [address] 07/13/2024 10:25:32 07/13/2024 10:52:14 Spinal stenosis of lumbar region 50212295 M48.062 Lumbosacra l spondylosis without myelopathy 03442286 M47.817 Displaceme nt of lumbar intervertebral disc without myelopathy 55389805 M51.26 Spondylolisthesis 586541 003 M43.17 Lumbosacra l radiculitis 30525408 M54.17 53952 Brandy Torres MD PAIN OFFICE [address] [facility] [place] [address] 09/12/2024 11:15:23 09/12/2024 16:33:50 Spinal stenosis of lumbar region 94627082 M48.062 Lumbosacra l spondylosis without myelopathy 15302896 M47.817 Displaceme nt of lumbar intervertebral disc without myelopathy 18394559 M51.26 Spondylolisthesis 756373 003 M43.17 Lumbosacra l radiculitis 13629278 M54.17 61793 Brandy Torres MD [facility] PAIN OFFICE [address] [place] [address] 10/12/2024 10:26:07 10/12/2024 16:18:51 Spinal stenosis of lumbar region 11027064 M48.062 Lumbosacra l spondylosis without myelopathy 40350248 M47.817 Displaceme nt of lumbar intervertebral disc without myelopathy 66160111 M51.26 Spondylolisthesis 278982 003 M43.17 Lumbosacra l radiculitis 14517120 M54.17 Health Concerns Section Related Observation LastModified by Organization Detai ls LastModified Time None Recorded Concern Status LastModified by Organization Details LastModified Time None Recorded Advance Directives Directive None Recorded Payers Insurance Date Sequence Insurance Name Policy Number Policy Germain Covered Member ID Germain Member ID Guarantor Name 10/09/2024 1 MEDICARE [place]: [facility] [email or web address] Kierra Clements [id number] Kierra Clements 09/22/2018 2 [place] Dwight Beltran Starr [id number] Kierra Clements 10/09/2024 2 [place] Kierra Starr [id number] Kierra Clements 10/09/2024 [facility] - SPECIALITY CLAIMS (MEDICARE DME REGION A) Kierra Emmaunel Starr [id number] Kierra Starr Notes Date Note Type Note Provider Name and Address Organization Details Recorded Time 11/27/2021 text/html She is here for a follow up. She was last seen in 2019 and had a knee replacement and has been doing well. She is on gabapentin 600mg tid and is doing well. She reports good pain benefit and no side effects. Brandy Torres MD [address] [facility] , [address], [place], [address], [facility] - Pain Management 12/03/2021 15:27:02 12/16/2022 text/html She is here for a follow up. She was last seen on Brandy Torres MD [address] [facility] , [address], [place], [address], [employer] - [facility] 12/23/2022 08:27:15 07/13/2024 text/html [...] within normal limits Brandy Torres MD [address] [facility] , [address], [place], [address], [employer] - Pain Management 07/14/2024 09:47:24 09/12/2024 text/html She is here for a trial of lumbar epidural steroid injection under fluoroscopic guidance. Brandy Torres MD [address] , [address], [place], [address], [facility] - Pain Management 09/13/2024 15:44:52 10/12/2024 text/html [...] or bowel incontinence. Brandy Torres MD [address] , [address], [place], [address], [facility] - Pain Management 10/13/2024 09:12:46 OBGyn Episode No OBEpisode recorded.
== END 2025-08-06 10:17 | disposition home or self-care (01) ==
LOC: HO.HOSX 10:16
PROVIDERS: PCP Internal Medicine; Referring Provider Orthopaedic Surgery; Visit Provider Physician Assistant
DX: M54.50 Low back pain, unspecified (principal); M79.604 Pain in right leg; M79.605 Pain in left leg; R29.898 Other symptoms and signs involving the musculoskeletal system; R53.83 Other fatigue
CPT/HCPCS: 72110; 99202

== ENCOUNTER → 2025-08-06 11:04 | Outpatient (BNV) | payer MEDICARE, BC, SELFPAY | PROVIDERS: PCP Internal Medicine; Referring Provider Orthopaedic Surgery; Visit Provider Radiology Diagnostic Radiology | DX: M47.816 Spondylosis without myelopathy or radiculopathy, lumbar region (principal) | CPT/HCPCS: 72110 ==

== ENCOUNTER 2025-10-20 07:28 | Outpatient (REF) | payer MEDICARE, BC, SELFPAY ==
--- NOTE | ~2025-10-20 | CT_ITS ---
CLINICAL HISTORY: M54.50 - Low back pain, unspecified Exam: Unenhanced CT lumbar spine with multiplanar reformats. Comparison: Lumbar radiographs 08/06/2025, and MRI dated 06/12/2025. Findings: Osseous structures: There is similar 5 mm grade 1 anterolisthesis L3 on L4, 9 mm grade 1 anterolisthesis L4 on L5, and 3 mm anterolisthesis L5 on S1. Remaining vertebral alignments are maintained. Vertebral heights are well-maintained. No fractures or traumatic malalignment. There is disc desiccation with disc space narrowing and vacuum phenomenon L4-S1. Remaining intervertebral disc heights are generally maintained with trace vacuum phenomena at L3-4 level. There is diffuse bilateral facet arthropathy, more significant L3-S1. No destructive osseous lesions. Soft tissues: Mild disc bulging with mild facet arthropathy and ligamentum flavum hypertrophy at L2-3 appears to result in at least [id number] central canal stenoses (5; 153). Anterolisthesis as well as disc bulging, facet arthropathy and ligamentum flavum hypertrophy at L3-4 results in severe appearing central canal stenoses (5; 191). Anterolisthesis at L4-5 along with facet arthropathy and likely disc bulging appears to result in severe central canal stenoses (5; 225). No other definable significant central canal stenoses. No other abnormal epidural or paraspinal soft tissue. Visualized visceral structures reveal no acute abnormalities. Impression: 1. Multilevel degenerative disease with multilevel spinal stenoses, most significant L3-L5. This document has been electronically signed by: Rick Medrano MD on 10/22/2025 17:53:21
--- OUTSIDE RECORDS SUMMARY | 2025-10-20 07:32 | XMS_ITS | Data Portability ---
Author Organization [facility] PA[facility] Address [address] [address] Care Team Providers Care Vocational Nursing Instructor Name Role Phone GALE GALVIN Primary Care [...] By Organization Details Last Modified Time 12/16/2022 10214 She was advised against bed rest lasting longer than four days and to continue activities as tolerated. [email or web address] Not available 12/22/2022 10:59:36 07/13/2024 22248 She was advised against bed rest lasting longer than four days and to continue activities as tolerated. [email or web address] Not available 07/13/2024 10:47:50 09/12/2024 [id number] She was advised against bed rest lasting longer than four days and to continue activities as tolerated. [email or web address] Not available 09/12/2024 12:03:01 10/12/2024 24219 She was advised against bed rest lasting longer than four days and to continue activities as tolerated. [email or web address] Not available 10/12/2024 16:05:53 Reason for Referral None Reported. Problems Name Problem SNOMED Code Status Onset Date Resolution Date Notes Provider Name and Address Organization Details Recorded Time Spinal stenosis of lumbar region [id number] Fazal de jesus MD [address] , [address], [facility] [place], [address], [place] [facility] 6 15:12:08 Lumbosacral spondylosis without myelopathy [id number] Fazal de jesus MD [address] , [address], [facility] [place], [address], [place] [facility] 6 15:12:08 Displacement of lumbar intervertebral disc without myelopathy [id number] Fazal de jesus MD [address] , [address], [facility] [place], [address], [place] [facility] 6 15:12:08 Lumbosacral radiculitis [id number] Fazal de jesus MD [address] , [address], [facility] [place], [address], [place] [facility] 6 15:12:08 Spondylolisthe sis [id number] Fazal de jesus MD [address] , [address], [facility] [place], [address], [place] [facility] 6 15:12:08 Osteoarthritis of knee [id number] Fazal de jesus MD [address] , [address], [place], [address], [place] [facility] 6 15:12:08 Problem Notes None recorded. Procedures Surgical History Date Name Laterality Status Provider Name and Address Organization Details Recorded Time 09/12/20 24 Lumbar Epidural steroid injection under fluoroscopic guidance completed Brandy Torres MD [address] , [address], [place], [address], [place] [facility] 09/12/2024 12:02:32 10/03/20 18 Intra-articular Knee Steroid Injection completed Brandy Torres MD [address] , [address], [place], [address], [place] [facility] 10/03/2018 13:56:48 02/05/20 17 Intra-articular Knee Steroid Injection completed Brandy Torres MD [address] , [address], [place], [address], [place] [facility] 02/04/2017 14:33:54 06/11/20 16 Intra-articular Knee Steroid Injection completed Brandy Torres MD [address] , [address], [place], [address], [place] [facility] 06/12/2016 09:27:30 05/06/20 16 Lumbar Epidural steroid injection under fluoroscopic guidance completed Brandy Torres MD [address] , [address], [place], [address], [place] [facility] 05/06/2016 10:37:52 01/01/20 16 Lumbar Epidural steroid injection under fluoroscopic guidance completed Brandy Torres MD [address] , [address], [place], [address], [place] [facility] 01/01/2016 09:34:35 10/22/20 15 Lumbar Epidural steroid injection under fluoroscopic guidance completed Brandy Torres MD [address] , [address], [place], [address], [place] [facility] 10/23/2015 11:40:58 07/31/20 15 Lumbar Epidural steroid injection under fluoroscopic guidance completed Brandy Torres MD [address] , [address], [place], [address], [place] [facility] 08/01/2015 13:40:16 05/06/20 15 Lumbar Epidural steroid injection under fluoroscopic guidance completed Brandy Torres MD [address] , [address], [place], [address], [place] [facility] 05/06/2015 10:40:39 02/12/20 15 Fluoroscopic Guided Lumbar Facet Steroid Injections of levels completed Brandy Torres MD [address] , [address], [place], [address], [place] [facility] 02/19/2015 11:23:10 12/31/19 15 Lumbar Epidural steroid injection under fluoroscopic guidance completed Brandy Torres MD [address] , [address], [place], [address], [place] [facility] 12/31/2014 [...] Vitals Date Recorded Heart rate Oxygen saturation Systolic And Diastolic Provider Name and Address Organization Details Last Updated DateTime 11/27/2021 67 /min 95 % 142/78 mm[Hg] Alena Yoon [place] [facility] 11/27/2021 15:36:21 Date Recorded Heart rate Oxygen saturation Pain severity - 0-10 verbal numeric rating [Score] - Reported Systolic And Diastolic Provider Name and Address Organization Details Last Updated DateTime 12/16/2022 72 /min 95 % 6 159/72 mm[Hg] Brittney Valerio [place] - [facility] 12/16/2022 16:10:05 Date Recorded Heart rate Oxygen saturation Pain severity - 0-10 verbal numeric rating [Score] - Reported Systolic And Diastolic Provider Name and Address Organization Details Last Updated DateTime 07/13/2024 63 /min 95 % 5 119/66 mm[Hg] Karina Robertson [place] - [facility] 07/13/2024 10:32:15 Date Recorded Heart rate Oxygen saturation Systolic And Diastolic Provider Name and Address Organization Details Last Updated DateTime 09/12/2024 65 /min 97 % 139/82 mm[Hg] Lisa Treviño [place] - [facility] 09/12/2024 11:41:12 Date Recorded Heart rate Oxygen saturation Pain severity - 0-10 verbal numeric rating [Score] - Reported Systolic And Diastolic Provider Name and Address Organization Details Last Updated DateTime 10/12/2024 67 /min 96 % 6 145/73 mm[Hg] Sole Luevano [place] - [facility] 10:31:00 Social History Question Answer Notes LastModified by Organizat ion Details LastModified Time Tobacco Smoking Status Former Smoker Quit x 40 years Not Available [employer] 08/23/2020 03:16:10 Which Illicit Or Recreational Drugs Have You Used? No [id number] Information not available 08/23/2020 Education Post Graduate [employer] Information not available 12/28/2014 Live Alone Or With Others? With Others [email or web address] Information not available 12/28/2014 Marital Status [email or web address] Informatio n not available 12/28/2014 What Was The Date Of Your Most Recent Tobacco Screening? 10/03/2018 [id number] Information not available 08/23/2020 How Many Years Have You Smoked Tobacco? 5 [id number] Information not available 08/23/2020 Sex: Unknown Functional Status Question Answer Note LastModified by Organization D etails LastModified Time What is your level of alcohol consumption? Moderate [id number] Information not available 08/23/2020 Are you currently employed? No [id number] Information not available 08/23/2020 Mental Status None [...] ICD10 Code Diagnosis IMO Codes Diagnosis Note 03460 Brandy Torres MD PAIN OFFICE [address] [facility] [place] [address] 12/28/2014 10:32:36 12/28/2014 13:45:12 Lumbosacral radiculitis [id number] Spinal jenna nosis of lumbar region 75046574 Displaceme nt of lumbar intervertebral disc without myelopathy 68636998 Lumbosacra l spondylosis without myelopathy 14591675 Spondylolisthesis 609619083 90366 Brandy Torres MD PAIN OFFICE [address] [facility] [place] [place] [address] 12/31/2014 09:01:00 12/31/2014 10:05:38 Spinal stenosis of lumbar region 07666335 Lumbosacra l spondylosis without myelopathy 09263327 Displaceme nt of lumbar intervertebral disc without myelopathy 48906078 Spondylolisthesis 891435517 Lumbosacra l radiculitis 24750301 56659 Brandy Torres MD PAIN OFFICE [address] [facility] [place] [address] 01/29/2015 09:41:19 01/29/2015 14:44:07 Spinal stenosis of lumbar region 53079007 Lumbosacra l spondylosis without myelopathy 29856245 Displaceme nt of lumbar intervertebral disc without myelopathy 08115342 Spondylolisthesis 179349502 Lumbosacra l radiculitis 75052292 21675 Brandy Torres MD PAIN OFFICE [address] [facility] [place] [address] 02/11/2015 12:57:21 02/19/2015 11:25:32 Lumbosacral spondylosis without myelopathy 71168102 Spinal jenna nosis of lumbar region 17720121 Displaceme nt of lumbar intervertebral disc without myelopathy 82667476 Spondylolisthesis 760321079 Lumbosacra l radiculitis 63615079 09437 Brandy Torres MD PAIN OFFICE [address] [facility] [place] [address] 03/12/2015 09:15:37 03/17/2015 10:26:53 Spinal stenosis of lumbar region 51652894 Lumbosacra l spondylosis without myelopathy 00711072 Displaceme nt of lumbar intervertebral disc without myelopathy 51441157 Spondylolisthesis 691400698 Lumbosacra l radiculitis 71919574 76561 Brandy Torres MD PAIN OFFICE [address] [facility] [place] [address] 05/06/2015 09:45:43 05/07/2015 09:23:34 Spinal stenosis of lumbar region 74425198 Lumbosacra l spondylosis without myelopathy 53119266 Displaceme nt of lumbar intervertebral disc without myelopathy 63907412 Spondylolisthesis 212787249 Lumbosacra l radiculitis 48389484 49078 Brandy Torres MD PAIN OFFICE [address] [facility] [place] [address] 07/31/2015 13:43:52 08/01/2015 13:42:18 Spinal stenosis of lumbar region 80863160 Lumbosacra l spondylosis without myelopathy 06060813 Displaceme nt of lumbar intervertebral disc without myelopathy 43584259 Spondylolisthesis 097185365 Lumbosacra l radiculitis 48173991 81590 Brandy Torres MD PAIN OFFICE [address] [place] [address] 10/22/2015 14:45:47 10/23/2015 11:42:48 Spinal stenosis of lumbar region 15890246 M48.06 Lumbosacra l spondylosis without myelopathy 07393394 M47.817 Displaceme nt of lumbar intervertebral disc without myelopathy 84235018 M51.26 Spondylolisthesis 283082 003 M43.10 Lumbosacra l radiculitis 53183137 M54.17 34533 Brandy Torres MD PAIN OFFICE [address] [place] [address] 01/01/2016 08:48:43 01/01/2016 09:35:14 Spinal stenosis of lumbar region 59291822 M48.06 Lumbosacra l spondylosis without myelopathy 32768158 M47.817 Displaceme nt of lumbar intervertebral disc without myelopathy 05209813 M51.26 Spondylolisthesis 948724 003 M43.10 Lumbosacra l radiculitis 20634541 M54.17 44002 Brandy Torres MD PAIN OFFICE [address] [place] [address] 02/28/2016 11:00:14 03/02/2016 08:55:00 Spinal stenosis of lumbar region 72303623 M48.06 Lumbosacra l spondylosis without myelopathy 18457697 M47.817 Displaceme nt of lumbar intervertebral disc without myelopathy 35561605 M51.26 Spondylolisthesis 242620 003 M43.17 Lumbosacra l radiculitis 70473972 M54.17 40280 Brandy Torres MD PAIN OFFICE [address] [place] [address] 05/06/2016 09:53:45 05/06/2016 10:38:29 Spinal stenosis of lumbar region 80813799 M48.06 Lumbosacra l spondylosis without myelopathy 60509597 M47.817 Displaceme nt of lumbar intervertebral disc without myelopathy 23018372 M51.26 Spondylolisthesis 902714 003 M43.17 M43.10 Lumbosacra l radiculitis 34627036 M54.17 58183 Brandy Torres MD PAIN OFFICE [address] [place] [address] 06/11/2016 13:12:24 06/11/2016 15:22:17 Spinal stenosis of lumbar region 33762035 M48.06 Lumbosacra l spondylosis without myelopathy 87092732 M47.817 Displaceme nt of lumbar intervertebral disc without myelopathy 59133075 M51.26 Spondylolisthesis 217459 003 M43.17 M43.10 Lumbosacra l radiculitis 80841382 M54.17 Osteoarthr itis of knee 385081000 M17.12 15562 Brandy Torres MD PAIN OFFICE [address] [place] [address] 02/04/2017 11:29:59 02/04/2017 15:11:25 Spinal stenosis of lumbar region 99089784 M48.06 Lumbosacra l spondylosis without myelopathy 88022523 M47.817 Displaceme nt of lumbar intervertebral disc without myelopathy 04072811 M51.26 Spondylolisthesis 263646 003 M43.17 M43.10 Lumbosacra l radiculitis 73251824 M54.17 Osteoarthr itis of knee 170711914 M17.12 14722 Brandy Torres MD PAIN OFFICE [address] [place] [address] 09/22/2018 14:47:52 09/23/2018 15:00:51 Spinal stenosis of lumbar region 28217063 M48.061 Lumbosacra l spondylosis without myelopathy 47868304 M47.817 Displaceme nt of lumbar intervertebral disc without myelopathy 21033939 M51.26 Spondylolisthesis 155758 003 M43.17 M43.10 Lumbosacra l radiculitis 02079724 M54.17 Osteoarthr itis of knee 478817894 M17.12 75783 Brandy Torres MD PAIN OFFICE [address] [place] [address] 10/03/2018 13:15:01 10/03/2018 13:58:50 Spinal stenosis of lumbar region 32700392 M48.061 Lumbosacra l spondylosis without myelopathy 41309203 M47.817 Displaceme nt of lumbar intervertebral disc without myelopathy 89941000 M51.26 Spondylolisthesis 151701 003 M43.17 M43.10 Lumbosacra l radiculitis 96588480 M54.17 Osteoarthr itis of knee 114089624 M17.12 18873 Brandy Torres MD PAIN OFFICE [address] [place] [address] 11/27/2021 15:24:36 12/03/2021 11:08:39 Spinal stenosis of lumbar region 21575925 M48.062 Lumbosacra l spondylosis without myelopathy 28494784 M47.817 Displaceme nt of lumbar intervertebral disc without myelopathy 60176550 M51.26 Spondylolisthesis 327327 003 M43.17 Lumbosacra l radiculitis 15094020 M54.17 61245 Brandy Torres MD PAIN OFFICE [address] [place] [address] 12/16/2022 16:05:48 12/22/2022 11:52:44 Spinal stenosis of lumbar region 22016709 M48.062 Lumbosacra l spondylosis without myelopathy 50334707 M47.817 Displaceme nt of lumbar intervertebral disc without myelopathy 35645201 M51.26 Spondylolisthesis 904168 003 M43.17 Lumbosacra l radiculitis 95362001 M54.17 24116 Brandy Torres MD PAIN OFFICE [address] [place] [address] 07/13/2024 10:25:32 07/13/2024 10:52:14 Spinal stenosis of lumbar region 76409747 M48.062 Lumbosacra l spondylosis without myelopathy 38883802 M47.817 Displaceme nt of lumbar intervertebral disc without myelopathy 90076157 M51.26 Spondylolisthesis 974611 003 M43.17 Lumbosacra l radiculitis 19671643 M54.17 55964 Brandy Torres MD PAIN OFFICE [address] [place] [address] 09/12/2024 11:15:23 09/12/2024 16:33:50 Spinal stenosis of lumbar region 10873341 M48.062 Lumbosacra l spondylosis without myelopathy 31286333 M47.817 Displaceme nt of lumbar intervertebral disc without myelopathy 47861598 M51.26 Spondylolisthesis 071879 003 M43.17 Lumbosacra l radiculitis 21858052 M54.17 49862 Brandy Torres MD PAIN OFFICE [address] [place] [address] 10/12/2024 10:26:07 10/12/2024 16:18:51 Spinal stenosis of lumbar region 89971178 M48.062 Lumbosacra l spondylosis without myelopathy 76257267 M47.817 Displaceme nt of lumbar intervertebral disc without myelopathy 66154013 M51.26 Spondylolisthesis 504681 003 M43.17 Lumbosacra l radiculitis 30893395 M54.17 Health Concerns Section Related Observation LastModified by Organization Detai ls LastModified Time None Recorded Concern Status LastModified by Organization Details LastModified Time None Recorded Advance Directives Directive None Recorded Payers Insurance Date Sequence Insurance Name Policy Number Policy Germain Covered Member ID Germain Member ID Guarantor Name 10/09/2024 1 [place] Kierra Clements [id number] Kierra Clements 09/22/2018 2 [place] Dwight Clements [id number] Kierra Clements 10/09/2024 2 [place] Kierra Clements [id number] Kierra Clements 10/09/2024 [employer] - SPECIALITY CLAIMS (MEDICARE DME REGION A) Kierra Benitez Starr [id number] Kierra Starr Notes Date Note Type [...] no side effects. Brandy Torres MD [address] [facility] [address], [place], [address], [facility] - Pain Management 12/03/2021 15:27:02 12/16/2022 text/html She is here for a follow up. She was last seen on Brandy Torres MD [address] [facility] [address], [place], [address], [facility] - Pain Management 12/23/2022 08:27:15 07/13/2024 text/html [...] within normal limits Brandy Torres MD [address] [facility] [address] , [address], [place], [address], [facility] - Pain Management 07/14/2024 09:47:24 09/12/2024 text/html She is here for a trial of lumbar epidural steroid injection under fluoroscopic guidance. Brandy Torres MD [address] [facility] [address] , [address], [place], [address], [place] - [facility] 09/13/2024 15:44:52 10/12/2024 text/html [...] bladder or bowel incontinence. Brandy Torres MD [address] [place] [address] , [address], [place], [address], [facility] - Pain Management 10/13/2024 09:12:46 OBGyn Episode No OBEpisode recorded.
--- OUTSIDE RECORDS SUMMARY | 2025-10-20 07:32 | XMS_ITS | Clinical Summary ---
Author Organization [facility] Address [address] [place] [address] Care Team Providers Care Paint Brush Maker Name Role Phone Bao Gould MD Primary Care Provider [phone] Surgical History Surgery Date Site/Laterality Comments KNEE [...] on file Sexual Orientation Not on file Plan of Treatment Health Maintenance Due Date Last Done Comments DTaP,Tdap,and Td Vaccines (1 - Tdap) 1969 Pneumococcal Vaccine: 50+ Years (1 of 1 - PCV) 1998 Falls Risk Assessment 10/10/2022 Hepatitis C Screening 10/10/2022 Osteoporosis Screening (Bone Density Screening) 10/10/2022 Social Influencers of Health Screening 10/10/2022 RSV Immunization Adult Patients (1 - 1-dose 75+ series) 2023 Depression Screening 11/08/2024 COVID-19 Vaccine (1 - 2024-2 6 season) 2025 Influenza Vaccine (#1) 2025 9, [...] Documents on File Type Date Recorded Patient Tool Programmer Expl anation Health Care Decision (hx) 09/18/2019 AD CODY DIRECTIVE Health Care Decision (hx) 09/18/2019 AD CODY DIRECTIVE Health Care Decision (hx) 09/18/2019 AD CODY DIRECTIVE Care Teams Paint Brush Maker Relationship Specialty Start Date End Date Bao Gould MD PCP - General Sports Medicine Trainer 11/21/18
--- OUTSIDE RECORDS SUMMARY | 2025-10-20 07:32 | XMS_ITS | Clinical Summary ---
Author Organization [facility] Prior to 04/07/[address] [place] [address] Care Team Providers Care Reactor Operator Name Role Phone Bao Thompson MD Primary Care Provider [phone] Allergies No known active allergies Medications Medication [...] age to complete this topic Care Teams Reactor Operator Relationship Specialty Start Date End Date Bao Thompson MD [address] [address] PCP - General Hand Tube Bender 11/21/18
== END 2025-10-20 07:29 | disposition home or self-care (01) ==
LOC: HO.CT 07:28
PROVIDERS: PCP Internal Medicine; Visit Provider Physician Assistant
DX: M79.604 Pain in right leg (principal); M79.605 Pain in left leg; M54.50 Low back pain, unspecified
CPT/HCPCS: 72131